=== PATIENT | female | born 1965 | race African-American/Black ===

== ENCOUNTER 2024-03-09 16:03 | Outpatient (REF) | payer OTHER, MEDICAID, SELFPAY ==
[2024-03-09 17:58] LABS: Vitamin B12 715 pg/mL (200-900)
--- OUTSIDE RECORDS SUMMARY | 2024-03-09 18:10 | XMS_ITS | Data Portability ---
Author Organization [facility], [place] [facility] [employer] Address [address] [place] [id number] Care Team Providers Care Furnace Filler Name Role Phone HIM CCA OTHER ABIJessiJEANNETTEGabbi Primary Care Provider [phone] Assessment Encounter Date Assessment Date Assessment LastModified by Organization Details LastModified Time 03/31/2023 03/31/2023 I provided real -time medical direction via phone for this encounter, and was available for additional phone-based assistance as needed. I have reviewed and agree with the Assessment and Plan as documented by the Cardiothoracic Physiotherapist. Patient given the opportunity to ask questions. As per above, patient with left ear pain times days that subsequent ally developed into a ST. Eating and drinking normally. Denies F/C. Per assembly cleaner on the scene - non-toxic, NAD, stable vitals and AF. COVID and Strept are both negative. Does have a h/o OM. Differential includes OM vs. OME - unable to visualize TM in the field. Pharyngitis likely viral. Given her history of OM responsive to PCN - will treat with Amoxicillin times 7 days. She can f/u with PCP if symptoms do not resolve. Can use OTCs for pain control - Tylenol vs Advil. We discussed the diagnostic uncertainty of home visits and the risk associated with this. In this case, the patient and I felt this to be an acceptable and reasonable amount of risk given the benefit of avoiding an ED visit. We discussed the need to seek care urgently/emergentl y in the setting of any new or worsening serious symptoms, particularly fever chills lightheadedness altered mental status [email or web address] Not available 03/31/2023 12:42:52 01/02/2024 01/02/2024 As noted, we salas e called to see this patient regarding concerns of vaginal itchEvaluation in the field was performed by my assembly cleaner colleague, as noted above, I provided real-time direction and supervision for this visit. 58 F reports symptoms that feel like a yeast infection. describes vaginal and groin itch though no discharge. Pt refused a visual exam. will prescribe diflucan x1 but she needs to see her pcp for a proper exam to assess for intertrigo or vaginitis that might require different treatmetn [email or web address] Not available 01/02/2024 22:12:34 Plan of Treatment Reminders Order Date Submit Date Provider Last Modified By Organization Details Last Modified Time Details Appointments None recorded. Lab rapid SARS CoV 2 Ag, QL IA, respiratory specimen [address], [address] [place] [address], [phone], 4 12:43:36 rapid strep group A, throat [address], [address] [place] [address], [phone], 4 12:43:34 Referral None recorded. Procedures None recorded. Surgeries None recorded. Imaging None recorded. Medication Orders amoxicillin 875 mg tablet 2023 024 [facility] #[id number], [phone] [place], [address], 4 12:43:36 fluconazole 200 mg tablet 2023 024 [facility] #[id number], [phone] [place], [phone], 4 20:54:51 Patient TargetsNo targets recorded. Patient InstructionsNo instructions recorded. Reason for Referral None Reported. Results Created Date Observation Date Name Description Value Unit Range Abnormal Flag Note LastModifiedBy Organization Detail LastModifiedTime 03/31/1903/31/2023 rapid strep group A, throa t Strep negati ve Not Available [address], [phone], 03/31/2023 12:43:16 03/31/19 24 03/31/2023 rapid SARS CoV 2 Ag, QL IA, respi rator y speci men rapid SARS CoV 2 Ag, QL IA, respiratory specimen negati ve Not Available [facility] - [facility] ed [address] [facility], [place], [phone], 03/31/2023 12:43:06 Result Notes None recorded. Medical Equipment None Reported. Allergies No known drug allergies Medications Name Sig Start Date Stop Date Status Note LastModified by Organization Details LastModified Time amoxicillin 500 mg capsule TAKE 1 CAPSULE BY MOUTH EVERY 8 HOURS FOR 7 DAYS active Not Available Not Available No t Available furosemide 40 mg tablet TAKE 1 TABLET BY MOUTH EVERY DAY active Not Available Not Available No t Available acetaminophe n 325 mg tablet TAKE 1-2 TABLET(S) BY MOUTH EVERY 6 HOURS NEEDED FOR PAIN. MAX 4000 MG IN 24 HOURS FOR 30 DAYS active Not Available Not Available Not Available carvedilol 6.25 mg tablet TAKE 1 TABLET BY MOUTH TWICE A DAY active Not Available Not Available No t Available nicotine 14 mg/24 hr daily transdermal patch APPLY 1 PATCH EVERY DAY BY TRANSDERMAL ROUTE DIRECTED FOR 14 DAYS. active Not Available Not Available No t Available ibuprofen 800 mg tablet active Not Available Not Available Not Available nicotine (polacrilex) 2 mg gum CHEW 1 PIECE OF GUM EVERY 2 HOURS BY ORAL ROUTE NEEDED FOR 30 DAYS. active Not Available Not Available No t Available fluconazole 200 mg tablet TAKE 1 TABLET BY MOUTH EVERY DAY active Not Available Not Available No t Available meloxicam 15 mg tablet TAKE 1 TABLET BY MOUTH EVERY DAY DIRECTED active Not Available Not Available No t Available isosorbide mononitrate ER 30 mg tablet,exten ded release 24 hr TAKE 1 TABLET BY MOUTH EVERY DAY active Not Available Not Available No t Available amlodipine 5 mg tablet TAKE 1 TABLET BY MOUTH EVERY DAY DIRECTED active Not Available Not Available No t Available omeprazole 40 mg capsule,dana yed release TAKE 1 CAPSULE BY MOUTH EVERY DAY DIRECTED FOR 90 DAYS active Not Available Not Available Not Available acetaminophe n 500 mg tablet TAKE 2 TABLETS BY MOUTH THREE TIMES DAILY NEEDED FOR PAIN active Not Available Not Available No t Available carvedilol 3.125 mg tablet active Not Available Not Available Not Available amoxicillin 875 mg tablet TAKE 1 TABLET BY MOUTH EVERY 12 HOURS DIRECTED FOR 7 DAYS active Not Available Not Available N ot Available montelukast 10 mg tablet TAKE 1 TABLET BY MOUTH EVERY DAY DIRECTED active Not Available Not Available No t Available furosemide 20 mg tablet TAKE 1 TABLET BY MOUTH EVERY DAY FOR 90 DAYS active Not Available Not Available No t Available hydroxychlor oquine 200 mg tablet TAKE 1 TABLET BY MOUTH EVERY DAY DIRECTED active Not Available Not Available No t Available epinephrine 0.3 mg/0.3 mL injection, auto-injecto r INJECT 1 PEN INTRAMUSCUL PEDRO PABLO NEEDED FOR ANAPHALAXIS DIRECTED active Not Available Not Available Not Available albuterol sulfate HFA 90 mcg/actuatio n aerosol inhaler USE 2 PUFFS BY MOUTH FOUR TIMES DAILY active Not Available Not Available No t Available fluticasone propionate 50 mcg/actuatio n nasal spray,suspen favio active Not Available Not Available Not Available nicotine (polacrilex) 2 mg buccal lozenge DISSOLVE 1 LOSENGE EVERY 8 HOURS NEEDED FOR 30 DAYS active Not Available Not Available No t Available chlorhexidin e gluconate 0.12 % mouthwash USE 15 ML TO RINSE MOUTH FOR 30 SECONDS TWICE DAILY AFTER BRUSHING AND FLOSSING. DO NOT SWALLOW active Not Available Not Available No t Available All Day Allergy (cetirizine) 10 mg tablet active Not Available Not Available Not Available cholecalcife rol (vitamin D3) 50 mcg (2,000 unit) capsule TAKE 1 CAPSULE BY MOUTH EVERY DAY DIRECTED FOR 90 DAYS active Not Available Not Available Not Available Farxiga 10 mg tablet TAKE 1 TABLET BY MOUTH EVERY DAY DIRECTED active Not Available Not Available No t Available Entresto 24 mg-26 mg tablet TAKE 1 TABLET BY MOUTH TWICE A DAY DIRECTED FOR 90 DAYS active Not Available Not Available Not Available Spiriva Respimat 1.25 mcg/actuatio n solution for inhalation INHALE 2 PUFFS BY MOUTH ONCE DAILY DIRECTED active Not Available Not Available No t Available nicotine (polacrilex) 4 mg buccal mini lozenge active Not Available Not Available Not Available BinaxNOW COVID-19 Ag Self Test kit TEST DIRECTED TODAY active Not Available Not Available No t Available Vitals Date Recorded Body temperature Respiratory rate Heart rate Oxygen saturation Oxygen saturation in Arterial blood by Pulse oximetry Systolic blood pressure Diastolic blood pressure Provider Name and Address Organization Details Last Updated DateTime 4 99.2 [degF] 16 /min 88 /min 99 % 99 % 140 mm[Hg] 80 mm[Hg] Not Available [facility] - production 4 12:29:45 Date Recorded Respiratory rate Oxygen saturation Oxygen saturation in Arterial blood by Pulse oximetry Body weight Body temperature Body height Heart rate Systolic blood pressure Diastolic blood pressure Provider Name and Address Organization Details Last Updated DateTime 4 18 /min 99 % 99 % 90930.7 44 g 98 [degF] 175.26 cm 90 /min 159 mm[Hg] 80 mm[Hg] Not Available [facility] - production 4 20:52:14 Social History None recorded. Functional Status None recorded. Mental Status None recorded. Family History Nothing Reported. Medical History No medical history recorded. Gynecological HistoryNo gynecological history recorded. Obstetrics History GPAL:G 0 P 0 0 0 0 Past Encounters Encounter ID Performer Location Encounter Start Date Encounter Closed Date Diagnosis/Indication Diagnosis SNOMED-CT Code Diagnosis ICD10 Code Diagnosis Note [id number] Estefany Fierro MD [facility] - [facility] [address] [place] [id number] 03/31/2023 12:29:42 03/31/2023 21:48:03 Acute otitis media 2900431 H66.92 [id number] Emiliano Butterfield MD Main - [facility] [address] [place] [phone] 01/02/2024 20:52:11 01/03/2024 14:02:39 Pruritus of vagina 91854917 L29.3 Health Concerns Section Related Observation LastModified by Organization Detai ls LastModified Time None Recorded Concern Status LastModified by Organization Details LastModified Time None Recorded Advance Directives Directive None Recorded Payers Encounter Date Sequence Insurance Name Policy Number Policy Michel Covered Member ID Michel Member ID Guarantor Name 03/31/2023 1 [facility] - DOS ON OR AFTER 2022 - DUAL ELIGIBLE - HALFWAY OPTIONS AND ONE CARE (MEDICARE REPLACEMENT/ADV ANTAGE - HMO) [place] Click [id number] [employer] R [employer] 01/02/2024 1 [facility] - DOS ON OR AFTER 2022 - DUAL ELIGIBLE - HALFWAY OPTIONS AND ONE CARE (MEDICARE REPLACEMENT/ADV ANTAGE - HMO) [place] [id number] [employer] R [employer] Notes Date Note Type Note Provider Name and Address Organization Details Recorded Time 03/31/2023 text/html [facility] Nurse Triage Notes (Hany Lynne): Reason For Request: Pt reporting trouble swallowing, ears, throat, gargling salt water + tylenol for 2 days and no alleviation. Chief Complaints: Pain Allergies: No Known Comments: Cargo Trimmer verified the member's name//address and phone number - Education provided on the response time and the member was advised to monitor reported s/s and seek emergency treatment if needed. Member reports feeling unwell with a sore throat/congestion and ear pain for 2 days - Member is taking Tylenol - Denies fever - Denies N/V - Denies Body aches - Member is requesting a wellness check. ...................... ...................... ...................... ...................... ...................... ...................... ......... Cardiothoracic Physiotherapist Note From Angel Allen: Dispatched to the call address for the female with a sore throat and ear pain. Pt states she is on day 3 or 4 of a sore throat with left ear pain/pressure. Pt states she has had this before and was treated successfully with abx. Pt states she has tried OTC pain relievers with little effect. She describes the throat pain is difficulty swallowing and razor blades. Pt was found opening door, CAOx4, airway open and patent, breathing non labored, able to speak in full sentences, -JVD, pupils PERRL, +CMSx4, skin color appropriate for race/warm/dry. Rapid Covid and Strept test (-). [facility] [place]. Script called into preferred pharmacy. Red flags discussed. ALL times are approx. ...................... ...................... ...................... ...................... ...................... ...................... ......... Disposition: Oseas Estefany Fierro MD [address] [facility],[address], [place], [phone], [facility] 03/31/2023 12:44:20 01/02/2024 text/html [facility] Nurse Triage Notes (Hany Lynne): Reason For Request: yeast infection Chief Complaints: Wound care PMH: Gastroesophageal Reflux Disease (GERD), Congestive Heart Failure, Hypertension Comments: Cargo Trimmer verified the Pt.'s name//address and phone number. Education provided on the response time and the Pt. was advised to monitor reported s/s and seek emergency treatment if needed. Pt reports having a yeast infection - Increased discharge with an odor - Hx of same - Denies fever - S/S started yesterday ...................... ...................... ...................... ...................... ...................... ...................... ......... Cardiothoracic Physiotherapist Note From Torrie Lewis: Sent to a call for a pt complaining of a yeast infection. SC8 arrives on scene, pt is alert and oriented, airway is patent. Pt states she has had multiple yeast infections in the past. Pt denies medication allergies. Pt complains of itching/burning on vulva, discharge, and foul odor x 2 days. Pt denies perkins, dizziness, cp, sob, n/v/d, abd pain, dysuria, hematuria, fever, or loc. BP:159/80, P:90, RR:18, SpO2:99% RA, T:98.0; Head: unremarkable; Lung sounds: clear bilaterally; Abdomen: soft, non-tender, no distention; Back: unremarkable; Extremities: unremarkable; Skin: pink, warm, dry; Pt declines visual exam to assess affected area. [facility] consulted and pt again declines visual exam. [facility] [place] script to pt's pharmacy for Fluconazole. Pt is advised to follow up with PCP. Red flags discussed. Pt has no further questions. ...................... ...................... ...................... ...................... ...................... ...................... ......... [facility] Consulted: Emiliano Butterfield ...................... ...................... ...................... ...................... ...................... ...................... ......... Disposition: Oseas Butterfield MD [address] [facility],[address], [place], [phone], [facility] 01/02/2024 22:12:48 OBGyn Episode No OBEpisode recorded.
--- OUTSIDE RECORDS SUMMARY | 2024-03-09 18:10 | XMS_ITS | Continuity of Care Document ---
Author Name [facility] Organization [facility] Care Team Providers Care Poultry Grader Name Role Phone [facility] Unavailable Unavailable Problems Combined list of problems from Department of Defense and Veterans Affairs facilities. It does not include entries that were removed or entered in error. Problem Status Onset Date Problem Type Date of Resolution Comments Source Sleep Apnea (SCT [id number]) Active 2013 Condition Jan 21, 2023 Entered By: TABITHA DORMAN Comment: Mild - not on CPAP [facility] Alcoholic cirrhosis Active Condition [facility] Asthma (SCT 460322373) Active Condition [facility] Colonoscopy Screening Active Condition Oct 15, 2019 En tered By: TABITHA DORMAN Comment: 10/07/19 - consult w/Dr Pacheco - procedure to be scheduled [facility] Congestive heart failure Active Condition Mar 03, 2023 En tered By: TABITHA DORMAN Comment: Dxed 01/12/23 [place] Constipation Active Condition [facility] Dermatophytosis Active Condition [facility] GERD - Gastro-Esophageal Reflux Disease (SCT [id number]) Active Condition [facility] 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 Oct 14, 2017 Entered By: TABITHA DORMAN Comment: IUD placed 2016 [facility] Hidradenitis Active Condition [facility] HTN - Hypertension (SCT 31611705) Active Condition [facility] Hypercholesterolemi a (SCT 02819250) Active Condition [facility] Mammogram Screening Active Condition Oct 14, 2017 Entered By: TABITHA DORMAN Comment: 03/15/2015 - normal - [facility] 2019 Entered By: TABITHA DORMAN Comment: 05/02/19 - several loosely scattered small groups of coarse microcalcifications bilaterally, prob benign, recommend 6 mth f/u diagnostic mammo bilateral to confirm stabilitySep 2019 Entered By: TABITHA DORMAN Comment: 11/04/19 - [facility] - stable B/L, prob benign microcalcifications, recommend 6 mth f/u diagnostic mammography w/magnification views to establish at least 1 yr stability [facility] Peripheral neuropathic pain Active Condition [facility] Relationship problems Active Condition [facility] Tobacco User (SCT [id number]) Active Condition [facility] Diagnosis: ICD-10-CM I50.9 Heart failure, unspecified Active Diagnosis [place] Diagnosis: ICD-10-CM R05.9 Cough, unspecified Active Diagnosis [facility] Medications Combined list of outpatient medications from Department of Defense and Veterans Affairs facilities.Medications provided include 1) outpatient medications from the last 15 months, and 2) patient-reported medications. Medication Details Route Status Patient Instructions Prescription Expires Prescription Number Last Dispense Date Ordering Provider Order Date Order Qty Source CARVEDILOL 6.25MG TAB TAKE ONE TABLET BY MOUTH TWICE DAILY ORAL ACTIVE MONSE DORMAN SA 2023 [place] CETIRIZINE (U/D) 10 MG ORAL TAB TAKE ONE TABLET BY MOUTH ONCE DAILY FOR ALLERGIE S 01/23/2023 [id number] CHARLES DEY 2022 30 [facility] CETIRIZINE HCL 10MG TAB TAKE ONE TABLET BY MOUTH ONCE DAILY FOR ALLERGIE S ORAL 01/23/2023 [id number] RADHA DEY 2022 30 [facility] EPINEPHRINE (EQV-EPI-PE N) 0.3MG/0.3ML INJECTOR INJECT DIRECTED INTRAMUS CULARLY NEEDED INTRAM USCULA R ACTIVE MONSE DORMAN SA 2017 IELD FERROUS GLUCONATE TAB TAKE 240MG BY MOUTH TWICE DAILY ORAL ACTIVE MONSE DORMAN SA 08/28/ 2018 [place] FLONASE-OTC (BRAND) 50 MCG ANTOINETTE SPSN [9.9] INSTILL 2 SPRAYS INTO EACH NOSTRIL ONCE DAILY 01/23/2023 [id number] 3 YISSEL, CHARLES 2022 1 [facility] FLONASE-OTC (BRAND) 50 MCG ANTOINETTE SPSN [9.9] INSTILL 2 SPRAYS INTO EACH NOSTRIL ONCE DAILY 01/23/2023 [id number] 3 YISSEL, CHARLES 2022 1 [facility] FLUTICASONE PROPIONATE 50MCG/SPRAY SOLN,NASAL, 16GM INSTILL 2 SPRAYS INTO EACH NOSTRIL ONCE DAILY NASAL 01/23/2023 [id number] 3 YISSEL,NA DEBI M 2022 1 [facility] FUROSEMIDE 40MG TAB TAKE ONE TABLET BY MOUTH ONCE DAILY ORAL ACTIVE MONSE DORMAN SA spring IELD HYDROXYCHLO ROQUINE SO4 200MG TAB TAKE ONE TABLET BY MOUTH ORAL ACTIVE MONSE DORMAN SA spring IELD MONTELUKAST NA 10MG TAB TAKE ONE TABLET BY MOUTH ONCE DAILY ORAL ACTIVE MONSE DORMAN SA spring IELD Nicotine Polacrilex (Commit Eq.) Lozenge 4 mg Mouth/Throa t DISSOLVE 1 LOZENGE BY MOUTH EVERY TWO HOURS NEEDED FOR NICOTINE REPLACEM ENT 03/03/2024 [id number] TABITHA DORMAN 2023 162 [facility] NICOTINE POLACRILEX 4MG MINI LOZENGE DISSOLVE 1 LOZENGE BY MOUTH EVERY TWO HOURS NEEDED FOR NICOTINE REPLACEM ENT ORAL 03/03/2024 [id number] MONSE DORMAN SA 2023 162 [place] OMEPRAZOLE 20MG CAP,EC TAKE 2 CAPSULES BY MOUTH ONCE DAILY ORAL ACTIVE MONSE DORMAN SA spring IELD SACUBITRIL 24MG/VALSAR EPSTEIN 26MG TAB TAKE ONE TABLET BY MOUTH TWICE DAILY ORAL ACTIVE MONSE DORMAN SA 2023 [facility] IELD SENNOSIDES 8.6MG TAB TAKE ONE TABLET BY MOUTH TWICE DAILY ORAL ACTIVE MONSE DORMAN SA 2017 [facility] IELD Allergies, Adverse Reactions, Alerts Combined list of allergies from Department of Defense and Veterans Affairs facilities. It does not include entries that were removed or entered in error. Substance Category Reaction Severity Reaction type Status Date Reported Comments Source CAT DANDER Propensity to adverse reaction (finding) active 8 [facility] [place] Propensity to adverse reaction (finding) active 8 [facility] Immunizations Combined list of available immunizations from the Department of Defense and Veterans Affairs facilities. Immunization Series Date Given Administered By Site Reaction Lot Number CVX Code Drug Stem Mounter Status Comments Source COVID-19 (MODERNA), MRNA, LNP-S, PF, 50 MCG/0.5 ML (AGES 12+ YEARS) 2023 PRIMITIVO POWERS ON M LEFT DELTO ID [id number] 312 complet ed [place] INFLUENZA, INJECTABLE, QUADRIVALENT, PRESERVATIVE FREE 2023 PRIMITIVO POWERS ON M RIGHT DELTO ID [id number] A 150 complet ed [place] INFLUENZA, INJECTABLE, QUADRIVALENT, PRESERVATIVE FREE 2021 150 complet ed [place] PNEUMOCOCCAL CONJUGATE PCV20, POLYSACCHARID E [id number] CONJUGATE, ADJUVANT, PF 2021 216 complet ed [place] INFLUENZA, INJECTABLE, QUADRIVALENT, PRESERVATIVE FREE 2018 150 complet ed Partner: [facility]. Administe red by: [facility] Clinician (NPI=Not Provided) . Partner 4 Mfr: [facility] FLU,3 YRS (HISTORICAL) 2016 88 complet ed Hayden Stoper s [facility] INFLUENZA, SEASONAL, INJECTABLE 2016 141 complet ed outside pcp [place] [facility] [place] [facility] PNEUMOCOCCAL POLYSACCHARID E [id number] 2011 33 complet ed [facility] TDAP [address] [place] [address] Stoper s [facility] Encounters Combined list of: 1) Encounters from Department of Veterans Affairs facilities going back up to thelast 18 months. 2) Encounters from the Department of Defense facilities going back up to 280 months. Location Location Details Encounter Type Encounter Number Reason For Visit Attending Provider ADM Date DC Date Status Disposition Source [facility] Outpatient Encounter [id number] 09/15 [facility]counter [id number] 09/23 [facility] Out[facility]counter [id number] 09/23 [facility] Out[facility] Encounter [id number] YOSELIN WARNER 12/23 [facility] Out[facility] Encounter [id number] Diagnos is: ICD-10- CM R05.9 Cough, unspeci fied
CHINO DEY 12/24 [facility] En[facility] [id number] 01/11 [facility] Out[facility]counter [id number] 01/19 [facility]counter [id number] 01/21 [facility] [place] Outpatient Encounter [id number] 01/21 [facility] [place] [facility] Outpatient Encounter [id number] 02/25 [place] [facility] [place] Outpatient Encounter [id number] 03/03 [place] [facility] [place] [facility] OFFICE O/P EST MOD 30 MIN [id number] Diagnos is: ICD-10- CM I50.9 Heart failure , unspeci fied
LIA DORMAN 03/03 [facility] [place] [facility] [facility] Outpatient Encounter [id number] 11/26 [facility] [place] [place] [facility] Social History Combined list of available smoking, tobacco, and other social history from Department of Defense and Veterans Affairs facilities. 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 History of tobacco use CURRENT SMOKER 09/16/2017 20 cigarettes per day [place] This section is an empty social history section. DoD Plan of Care List of future care activities from Department of Veterans Affairs facilities. Additional future care activities may be listed in the Assessment and Plan section. 

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
--- OUTSIDE RECORDS SUMMARY | 2024-03-09 18:11 | XMS_ITS | Data Portability ---
Author Organization [place] [facility] Maureen Steve [place] Address [address] [facility] [address] [place] [address] Assessment Encounter Date Assessment Date Assessment LastModified by Organization Details LastModified Time 08/04/2022 08/04/2022 57-year-old female presenting with bilateral knee pain. She was entirely uncooperative with history and refused any exam. Please see the HPI for further description of her encounter. Ms. calvillo self discharged from this orthopedic practice today. Not available 08/04/2022 12:36:25 Plan of Treatment Reminders Order Date Submit Date Provider Last Modified By Organization Details Last Modified Time Details Appointments None recorded. Lab None recorded. Referral None recorded. Procedures None recorded. Surgeries None recorded. Imaging XR, knee, 1 or 2 view - Left Knee Pain 2022 023 [email or web address], [address], [place], [address], 3 12:38:19 XR, knee, 1 or 2 view - Right Knee Pain 2022 023 [email or web address], [address], [place], [address], 3 12:38:19 XR, knee, weightbeari ng - Bilateral Knee Pain 2022 023 [facility], [address], [place], [address], 3 12:38:19 Medication Orders None recorded. Patient TargetsNo targets recorded. Patient Instructions Encounter Date Encounter Id Patient Instructions Last Modified By Organization Details Last Modified Time 08/04/2022 [id number] Three-view x-ray study shows a mild degree of degenerative changes of bilateral knees. They show mild medial joint space narrowing and a subtle amount of subchondral sclerosis. There is no acute osseous abnormality nor any suggestion of a neoplastic process. Not available 08/04/2022 12:37:10 Reason for Referral None Reported. Medical Equipment None Reported. Medications Name Sig Start Date Stop Date Status Note LastModified by Organization Details LastModified Time ibuprofen 800 mg tablet TAKE 1 TABLET BY MOUTH EVERY 8 HOURS NEEDED FOR PAIN active Not Available Not Available No t Available meloxicam 15 mg tablet TAKE 1 TABLET BY MOUTH EVERY DAY DIRECTED active Not Available Not Available No t Available amlodipine 5 mg tablet TAKE 1 TABLET BY MOUTH EVERY DAY DIRECTED active Not Available Not Available No t Available triamcinolone acetonide 0.1 % topical ointment APPLY THIN LAYER TOPICALLY TO THE AFFECTED AREA TWICE DAILY active Not Available Not Available No t Available hydroxychloro quine 200 mg tablet TAKE 1 TABLET BY MOUTH EVERY DAY DIRECTED active Not Available Not Available No t Available epinephrine 0.3 mg/0.3 mL injection, auto-injector active Not Available Not Availabl e Not Available oxycodone 5 mg tablet active Not Available Not Available No t Available lidocaine 5 % topical ointment active Not Available Not Available Not Available Myrbetriq 25 mg tablet,extend ed release TAKE 1 TABLET BY MOUTH EVERY DAY DIRECTED active Not Available Not Available No t Available Vitals Date Recorded Body height Body mass index (BMI) Body weight Provider Name and Address Organization Details Last Updated DateTime 08/04/2022 175.26 cm 26.6 kg/m2 33871.63 g Tahir Leon [place] [facility] 08/04/2022 11:49:06 Social History Question Answer Notes LastModified by Organizat ion Details LastModified Time Tobacco Smoking Status Current Every Day Smoker Tahir Leon [facility], [place] - [facility] 08/04/2022 11:49:29 What Is Your Level Of Alcohol Consumption? Moderate [email or web address] Information not available 08/04/2022 How Much Tobacco Do You Smoke? 1 PPD [email or web address] Information not available 08/04/2022 Do You Use Any Illicit Or Recreational Drugs? No [email or web address] Information not available 08/04/2022 Do You Or Have You Ever Used Any Other Forms Of Tobacco Or Nicotine? No [email or web address] Information not available 08/04/2022 Sex: Unknown Functional Status None recorded. Mental Status None recorded. Family History Nothing Reported. Medical History Condition Response Anemia Y Reflux/GERD Y Rheumatoid Arthritis Y Hypertension Y Asthma Y Gynecological HistoryNo gynecological history recorded. Obstetrics History GPAL:G 0 P 0 0 0 0 Past Encounters Encounter ID Performer Location Encounter Start Date Encounter Closed Date Diagnosis/Indication Diagnosis SNOMED-CT Code Diagnosis ICD10 Code Diagnosis Note [id number] Nadeem Rocha MD [facility] [address] [facility] [address] [place] [address] 08/04/2022 11:09:58 08/04/2022 12:09:25 Pain of bilateral knee joints [id number] 82788 M25.561 M25.562 Health Concerns Section Related Observation LastModified by Organization Detai ls LastModified Time None Recorded Concern Status LastModified by Organization Details LastModified Time None Recorded Advance Directives Directive None Recorded Payers Encounter Date Sequence Insurance Name Policy Number Policy Michel Covered Member ID Michel Member ID Guarantor Name 08/04/2022 2 () [employer] [id number] [employer] 08/04/2022 1 [facility] - DOS ON OR AFTER 2022 - CUSTODIAL OPTIONS AND ONE CARE (MEDICARE REPLACEMENT/ADV ANTAGE - PPO) Juana Lambert Click [id number] [employer] Notes Date Note Type Note Provider Name and Address Organization Details Recorded Time 08/04/2022 text/html 57-year-old femjanes chavez presents with complaint of bilateral knee pain. She reports having used leg braces. She states having done physical therapy before COVID. She reports using meloxicam and gabapentin. Before Ms. calvillo was willing to answer any further questions regarding her presenting complaint she became agitated. I made every effort to listen to Ms. lucio concern and to direct our conversation towards her presenting complaint. She became increasingly irate and threatening. I brought a electronic design engineer into the room for the remainder of our discussion. I offered her to be rescheduled with another orthopedic provider but she refused. Ms. calvillo refused to answer any further questions and refused a physical exam. She self discharged from the office today. She made a loud and aggressive display including obscenities in the waiting room and in the hallway on her departure from the office. SHIRA LANDA PA-C [address] [place] [address], [place], [address], [place] [facility] 08/04/2022 12:38:09 OBGyn Episode No OBEpisode recorded.
--- OUTSIDE RECORDS SUMMARY | 2024-03-09 18:11 | XMS_ITS ---
Author Name [facility] Organization Unknown History of Medication Use Medication Directions Dispensed Refills Start Date End Date [facility] triamcinolone acetonide 0.1 % topical ointment APPLY THIN LAYER TOPICALLY TO THE AFFECTED AREA TWICE DAILY active epinephrine 0.3 mg/0.3 mL injection, auto-injector active Myrbetriq 25 mg tablet,extended release TAKE 1 TABLET BY MOUTH EVERY DAY DIRECTED active hydroxychloroquine 200 mg tablet TAKE 1 TABLET BY MOUTH EVERY DAY DIRECTED active lidocaine 5 % topical ointment active
--- OUTSIDE RECORDS SUMMARY | 2024-03-09 18:11 | XMS_ITS | Data Portability ---
Author Organization [facility], Main Office Address [address] [place] [address] Care Team Providers Care Sewing Trimmer Name Role Phone ANUP CANTOR Neurologist CLINTON HERNANDEZ Orthopedic Surgeon SHWETA LOPEZ Half Sole Fitter [phone] TABITHA DORMAN Sole Rounding Machine Operator CONSTANTIN REILLY Primary Care Provider [facility] Grease And Tallow Pumper Assessment Encounter Date Assessment Date Assessment LastModified by Organization Details LastModified Time 01/22/2023 01/22/2023 Discussed with patient the signs/symptoms warranted for a return to office visit and/or an ER visit. Patient understood and agreed with the plan. Not available 01/22/2023 21:33:50 12/16/2023 12/16/2023 Discussed with patient the signs/symptoms warranted for a return to office visit and/or an ER visit. Patient understood and agreed with the plan. Not available 12/16/2023 11:21:47 01/02/2024 01/02/2024 This service was provided using telemedicine. Patient consented to telephone visit Patient was located in the [facility]. Provider was located in the office. No other persons participated in the telemedicine visit except for the patient unless otherwise indicated here. 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 [email or web address] Not available 01/02/2024 20:28:25 Plan of Treatment Reminders Order Date Submit Date Provider Last Modified By Organization Details Last Modified Time Details Appointments [id number] 2024 11:00A Princess Reilly PA-C Not available Not available Not available Lab HbA1c (hemog lobin A1c), blood 2023 024 [facility], [address], [facility], [place], [address], 02/27/2023 19:49:05 CMP, serum or plasma 2023 024 [facility], [address], [facility], [place], [address], 02/27/2023 18:04:11 CBC w/ auto diff 2023 024 [facility], [address] [place] [address], [facility], [place], [address], 02/27/2023 16:09:20 H pylori urea breath test, co2 infrar ed 2023 024 [facility], [address] [place] [address], [address], 08/28/2023 10:44:46 CBC w/ auto diff 2023 024 [facility], [address] [place] [address], [address], 08/29/2023 16:06:24 BNP (B-typ e natriu retic peptid e), serum or plasma 2023 024 [facility], [address] [place] [address], [address], 08/29/2023 16:06:25 BMP, serum or plasma 2023 024 [facility], [address] [place] [address], [address], 08/29/2023 16:06:23 Referral sleep medici ne referr al - sleep apnea 2022 023 [facility], [address] [place] [address] [address], [place], [address], 09/07/2023 11:45:41 gastro entero logist referr al - hilario a colono scopy and endosc opy 2022 024 [email or web address] [facility], [address] [facility], [facility], [place], [address], 03/10/2023 11:23:22 gastro entero logist referr michael Pascual ished with Kevstjanes nader Needs colon cancer screen ing 2023 024 [email or web address] [facility], [address] [facility], [facility], [place], [address], 12/01/2023 10:16:57 Procedures None record ed. Surgeries None record ed. Imaging home sleep study 2022 023 [email or web address], [address] [facility], [place], [address], 02/11/2023 07:58:07 MAMMO, screen ing, bilate ral - Perfor m Diagno stic Mammog eilseo and Breast Ultras ound if needed / Perfor m Ultras ound Guided Aspira tion and/or Breast Biopsy if warran vanesa, due for screen ing 2023 024 ATHENAFAX [facility], [address], [place], [address], 02/27/2023 14:14:37 Medication Orders acetam inophe n 500 mg tablet 2023 024 YINA [facility], [phone] [place], [address], 02/27/2023 12:03:22 Vitami n D3 50 mcg (2,000 unit) capsul e 2023 024 [email or web address] [facility], [phone] [place], [address], 02/27/2023 12:46:53 omepra zole 40 mg capsul e,dana yed releas e [address] [facility] [phone] [place], [address], 08/28/2023 10:44:42 Ventol in HFA 90 mcg/ac tuatio n aeroso l inhale r [address] [facility] [phone] [place], [address], 08/28/2023 10:38:35 isosor bide mononi trate ER 30 mg tablet ,exten ded releas e [address] [facility], [phone] [place] [address], [address], 08/28/2023 10:38:38 meloxi cam 15 mg tablet [address] [facility] [phone] [place] [address], [address], 08/28/2023 10:38:37 lacey ukast 10 mg tablet [address] [facility] [phone] [place], [address], 08/28/2023 10:38:37 hydrox ychlor oquine 200 [address] [facility] [phone] [place], [address], 08/28/2023 10:38:37 Entres to 24 mg-26 mg tablet 2023 024 [email or web address] [facility], [phone] [place], [address], 08/28/2023 12:20:07 carved ilol 6.25 mg tablet 2023 024 [facility], [phone] [place], [address], 08/28/2023 10:38:36 Farxig a 10 mg tablet [address] [facility] [phone] [place], [address], 08/28/2023 10:38:36 flucon azole 150 mg tablet [address] [facility] [phone] [place], [address], 01/02/2024 20:23:49 Patient TargetsNo targets recorded. Patient Instructions Encounter Date Encounter Id Patient Instructions Last Modified By Organization Details Last Modified Time 01/22/2023 [id number] Chart reviewed, agree with above assessment and plan. [email or web address] Not available 01/25/2023 22:49:39 [facility] follow up visit, all current and discharge medications (OTC, herbal therapies, supplements) reviewed and reconciled with patient and or caregiver, including potential side effects, drug interactions, instructions, and the consequences of not taking medication. Reviewed potential barriers to medication adherence, such as side effects from medication or cost of medication. [email or web address] Not available 01/22/2023 14:08:37 02/27/2023 [id number] preventing falls : care instructions [email or web address] Not available 02/27/2023 11:44:27 medicare prevent flaco services guide (male 74 rs and under) [email or web address] Not available 02/27/2023 11:44:27 medicare prevent flaco services guide (female 74yrs and under) [email or web address] Not available 02/27/2023 11:44:27 learning about colon cancer [email or web address] Not available 02/27/2023 11:52:11 To call or retur n for worsening or concerns [email or web address] Not available 02/27/2023 11:57:11 08/28/2023 [id number] gastroesophageal reflux disease (GERD): care instructions [email or web address] Not available 08/28/2023 10:44:40 To call or retur n for worsening or concerns [email or web address] Not available 08/28/2023 10:38:36 Reason for Referral Grease And Tallow Pumper Referral for Gastroesophageal reflux disease needs a colonoscopy and endoscopy Referring Physician: Chichi Jeronimo [facility], Encounter Date: 01/22/2023 Sleep Medicine Referral for Sleep apnea sleep apnea Referring Physician: Chichi Jeronimo [facility], Encounter Date: 01/22/2023 Grease And Tallow Pumper Referral for Screening for malignant neoplasm of colon Established with [facility] colon cancer screening Referring Physician: Constantin Reilly [facility], Encounter Date: 02/27/2023 Results Created Date Observation Date Name Description Value Unit Range Abnormal Flag Note LastModifiedBy Organization Detail LastModifiedTime 02/27/19 24 02/27/2023 COMPL ETE CBC WITH DIFF WBC 5.3 K/mm3 (4.0-1 1.0) Not Available [facility] [place], [address], 02/27/2023 16:09:20 02/27/19 24 02/27/2023 COMPL ETE CBC WITH DIFF RBC 4.98 M/mm3 (4.20- 5.40) Not Available [facility] [address] [place], [address], 02/27/2023 16:09:20 02/27/19 24 02/27/2023 COMPL ETE CBC WITH DIFF HGB 13.2 gm/dL (11.7- 15.5) Not Available [facility] [address] [place], [address], 02/27/2023 16:09:20 02/27/19 24 02/27/2023 COMPL ETE CBC WITH DIFF HCT 43.6 % (35.7- 45.8) Not Available [facility] [address] [place], [address], 02/27/2023 16:09:20 02/27/19 24 02/27/2023 COMPL ETE CBC WITH DIFF MCV 87.6 fL (80.0- 100.0) Not Available [facility] [address] [place], [address], 02/27/2023 16:09:20 02/27/19 24 02/27/2023 COMPL ETE CBC WITH DIFF MCH 26.5 pg (27.0- 34.0) low Not Available [facility] [address] [place], [address], 02/27/2023 16:09:20 02/27/19 24 02/27/2023 COMPL ETE CBC WITH DIFF MCHC 30.3 g/dL (33.0- 37.0) low Not Available [facility] [address] [place], [address], 02/27/2023 16:09:20 02/27/19 24 02/27/2023 COMPL ETE CBC WITH DIFF plt 254 K/mm3 (150-4 60) Not Available [facility] [address] [place], [address], 02/27/2023 16:09:20 02/27/19 24 02/27/2023 COMPL ETE CBC WITH DIFF RDW-SD 50.0 fL (<47.0 ) high Not Available [facility] [address] [place], [address], 02/27/2023 16:09:20 02/27/19 24 02/27/2023 COMPL ETE CBC WITH DIFF MPV 10.9 fL (9.4-1 2.4) Not Available [facility] [address] [place], [address], 02/27/2023 16:09:20 02/27/19 24 02/27/2023 COMPL ETE CBC WITH DIFF automated NRBC 0.0 #/100 _WBC' s Not Available [facility] [address] [place], [address], 02/27/2023 16:09:20 02/27/19 24 02/27/2023 COMPL ETE CBC WITH DIFF abs. NRBC 0.0 K/mm3 Not Available [facility] [address] [place], [address], 02/27/2023 16:09:20 02/27/19 24 02/27/2023 COMPL ETE CBC WITH DIFF neut # 2.0 K/mm3 (1.3-7 .0) Not Available [facility] [address] [place], [address], 02/27/2023 16:09:20 02/27/19 24 02/27/2023 COMPL ETE CBC WITH DIFF lymph # 2.4 K/mm3 (0.8-3 .1) Not Available [facility] [address] [place], [address], 02/27/2023 16:09:20 02/27/19 24 02/27/2023 COMPL ETE CBC WITH DIFF mono# 0.4 K/mm3 (0.4-0 .9) Not Available [facility] [address] [place], [address], 02/27/2023 16:09:20 02/27/19 24 02/27/2023 COMPL ETE CBC WITH DIFF eo # 0.5 K/mm3 (0.0-0 .4) high Not Available [facility] [address] [place], [address], 02/27/2023 16:09:20 02/27/19 24 02/27/2023 COMPL ETE CBC WITH DIFF baso # 0.1 K/mm3 (0.0-0 .1) Not Available [facility] [address] [place], [address], 02/27/2023 16:09:20 02/27/19 24 02/27/2023 COMPL ETE CBC WITH DIFF abs. imm gran 0.0 K/mm3 Not Available [facility] [address] [place], [address], 02/27/2023 16:09:20 02/27/19 24 02/27/2023 COMPL ETE CBC WITH DIFF neut 37.2 % (44-76 ) low Not Available [facility] [address] [place], [address], 02/27/2023 16:09:20 02/27/19 24 02/27/2023 COMPL ETE CBC WITH DIFF lymph 44.6 % (15-43 ) high Not Available [facility] [address] [place], [address], 02/27/2023 16:09:20 02/27/19 24 02/27/2023 COMPL ETE CBC WITH DIFF monocyte 7.7 % (4.5-1 0.5) Not Available [facility] [address], [address], 02/27/2023 16:09:20 02/27/19 24 02/27/2023 COMPL ETE CBC WITH DIFF eo 9.6 % (0-6) high Not Available [facility] [address] [place], [address], 02/27/2023 16:09:20 02/27/19 24 02/27/2023 COMPL ETE CBC WITH DIFF baso 0.9 % (0-2) Not Available [facility] [address] [place], [address], 02/27/2023 16:09:20 02/27/19 24 02/27/2023 COMPL ETE CBC WITH DIFF imm gran 0.0 % Not Available [facility] [address] [place], [address], 02/27/2023 16:09:20 02/27/19 24 02/27/2023 COMPR EHENS FLACO METAB OLIC PANL glucose 88 mg/dL (70-99 ) Not Available [facility] [address] [place], [address], 02/27/2023 18:04:11 02/27/19 24 02/27/2023 COMPR EHENS FLACO METAB OLIC PANL BUN 15 mg/dL (6-20) Not Available [facility] [address] [place], [address], 02/27/2023 18:04:11 02/27/19 24 02/27/2023 COMPR EHENS FLACO METAB OLIC PANL creatinine 1.3 mg/dL (0.5-1 .0) high Not Available [facility] [address] [place], [address], 02/27/2023 18:04:11 02/27/19 24 02/27/2023 COMPR EHENS FLACO METAB OLIC PANL sodium 141 mmol/ L (133-1 45) Not Available [facility] [address] [place], [address], 02/27/2023 18:04:11 02/27/19 24 02/27/2023 COMPR EHENS FLACO METAB OLIC PANL potassium 4.4 mmol/ L (3.6-5 .2) Not Available [facility] [address] [place], [address], 02/27/2023 18:04:11 02/27/19 24 02/27/2023 COMPR EHENS FLACO METAB OLIC PANL chloride 105 mmol/ L (98-10 7) Not Available [facility] [address] [place], [address], 02/27/2023 18:04:11 02/27/19 24 02/27/2023 COMPR EHENS FLACO METAB OLIC PANL bicarbonate 26 mmol/ L (22-29 ) Not Available [facility] [address] [place], [address], 02/27/2023 18:04:11 02/27/19 24 02/27/2023 COMPR EHENS FLACO METAB OLIC PANL anion gap 10 (4-17) Not Available [facility] [address] [place], [address], 02/27/2023 18:04:11 02/27/19 24 02/27/2023 COMPR EHENS FLACO METAB OLIC PANL albumin 4.1 gm/dL (3.4-4 .8) Not Available [facility] [address] [place], [address], 02/27/2023 18:04:11 02/27/19 24 02/27/2023 COMPR EHENS FLACO METAB OLIC PANL calcium 10.4 mg/dL (8.6-1 0.5) Not Available [facility] [address] [place], [address], 02/27/2023 18:04:11 02/27/19 24 02/27/2023 COMPR EHENS FLACO METAB OLIC PANL bilirubin,to bridgette 0.9 mg/dL (0-1.2 ) Not Available [facility] [address] [place], [address], 02/27/2023 18:04:11 02/27/19 24 02/27/2023 COMPR EHENS FLACO METAB OLIC PANL total protein 7.2 gm/dL (6.2-8 .2) Not Available [facility] [address] [place], [address], 02/27/2023 18:04:11 02/27/19 24 02/27/2023 COMPR EHENS FLACO METAB OLIC PANL Ag ratio 1.3 Not Available [facility] [address] [place], [address], 02/27/2023 18:04:11 02/27/19 24 02/27/2023 COMPR EHENS FLACO METAB OLIC PANL AST 23 U/L (0-32) Not Available [facility] [address] [place], [address], 02/27/2023 18:04:11 02/27/19 24 02/27/2023 COMPR EHENS FLACO METAB OLIC PANL alk phos 125 U/L (35-10 4) high Not Available [facility] [address], [place], [address], 02/27/2023 18:04:11 02/27/19 24 02/27/2023 COMPR EHENS FLACO METAB OLIC PANL ALT 14 U/L (0-33) Not Available [facility] [address], [place], [address], 02/27/2023 18:04:11 02/27/19 24 02/27/2023 COMPR EHENS FLACO METAB OLIC PANL estimated GFR creatinine 49 mL/mi n/1.7 3_M2 Creat inine based estim ated glome rular filtr ation (eGFR ) in adult s is calcu lated using the Natio nal Kidne y Found ation recom tiki d 2020 CKD-E PI equat ion. Estim ates GFR from serum creat inine , age and sex. Not Available [facility] [address] [place], [address], 02/27/2023 18:04:11 02/27/19 24 02/27/2023 HEMOG LOBIN A1C hemoglobin A1C 5.5 % (4.0-5 .6) MONIT ORING : In known diabe tic patie nts, hemog lobin A1c targe ts shoul d be discu ssed with healt h care provi daniele. DIAGN OSTIC USE: The Ameri can Diabe terry Assoc iatio n (ADA) and the World Healt h Organ izati on (WHO) recom mend the use of HbA1c to diagn ose diabe terry using a thres hold of 6.5%. Patie nts who have an HbA1c betwe en 5.7% and 6.4% are consi dered at incre ased risk for devel oping diabe terry in the futur e. CAUTI ON: False ly low HbA1c resul ts may be obser jimy in patie nts with hemol ytic anemi a, homoz ygous forms of abnor mal hemog lobin (e.g. SS, CC, SC), pregn bella, recen t blood loss or hemog lobin F great er than 7%. Fruct osami ne may be used as an alter samantha test in these cases . REFER ENCE: ADA: Stand ards of Medic al Care in Diabe terry 2019, The Journ al of Clini kristin and Appli ed Resea rc and Educa tion Volum e 43, Suppl ement 1 Not Available [facility] [address], [place], [address], 02/27/2023 19:49:05 08/28/19 24 08/29/2023 BMP7+ EGFR glucose 94 mg/dL 70-99 Not Available [facility] ([facility]) [address] [place], [address], 08/29/2023 16:06:23 08/28/19 24 08/29/2023 BMP7+ EGFR BUN 27 mg/dL 6-24 above high normal Not Available [facility] ([facility]) [address] [place], [address], 08/29/2023 16:06:23 08/28/19 24 08/29/2023 BMP7+ EGFR creatinine 2.34 mg/dL 0.57-1 .00 above high normal Not Available [facility] ([facility]) [address] [place], [address], 08/29/2023 16:06:23 08/28/19 24 08/29/2023 BMP7+ EGFR eGFR 24 mL/mi n/1.7 3 >59 below low normal Not Available [facility] ([facility]) [address] [place], [address], 08/29/2023 16:06:23 08/28/19 24 08/29/2023 BMP7+ EGFR sodium 142 mmol/ L 134-14 4 Not Available [facility] ([facility]) [address] [place], [address], 08/29/2023 16:06:23 08/28/19 24 08/29/2023 BMP7+ EGFR potassium 4.7 mmol/ L 3.5-5. 2 Not Available [facility] ([facility]) [address] [facility], [place], [address], 08/29/2023 16:06:23 08/28/19 24 08/29/2023 BMP7+ EGFR chloride 104 mmol/ L 96-106 Not Available [facility] ([facility]) [address] [place], [address], 08/29/2023 16:06:23 08/28/19 24 08/29/2023 BMP7+ EGFR carbon dioxide, total 24 mmol/ L 20-29 Not Available [facility] ([facility]) [address] [place], [address], 08/29/2023 16:06:23 08/28/19 24 08/28/2023 CBC WITH DIFFE RENTI AL/PL ATELE T WBC 6.5 x10e3 /uL 3.4-10 .8 Not Available [facility] ([facility]) [address] [facility], [place], [address], 08/29/2023 16:06:24 08/28/19 24 08/28/2023 CBC WITH DIFFE RENTI AL/PL ATELE T RBC 4.63 x10e6 /uL 3.77-5 .28 Not Available [facility] ([facility]) [address] [place], [address], 08/29/2023 16:06:24 08/28/19 24 08/28/2023 CBC WITH DIFFE RENTI AL/PL ATELE T hemoglobin 13.2 g/dL 11.1-1 5.9 Not Available [facility] ([facility]) [address] [place], [address], 08/29/2023 16:06:24 08/28/19 24 08/28/2023 CBC WITH DIFFE RENTI AL/PL ATELE T hematocrit 42.1 % 34.0-4 6.6 Not Available [facility] ([facility]) [address] [place], [address], 08/29/2023 16:06:24 08/28/19 24 08/28/2023 CBC WITH DIFFE RENTI AL/PL ATELE T MCV 91 fL 79-97 Not Available [facility] ([facility]) [address] [facility], [place], [address], 08/29/2023 16:06:24 08/28/19 24 08/28/2023 CBC WITH DIFFE RENTI AL/PL ATELE T MCH 28.5 pg 26.6-3 3.0 Not Available [facility] ([facility]) [address] [facility], [place], [address], 08/29/2023 16:06:24 08/28/19 24 08/28/2023 CBC WITH DIFFE RENTI AL/PL ATELE T MCHC 31.4 g/dL 31.5-3 5.7 below low normal Not Available [facility] ([facility]) [address] [facility], [place], [address], 08/29/2023 16:06:24 08/28/19 24 08/28/2023 CBC WITH DIFFE RENTI AL/PL ATELE T RDW 12.0 % 11.7-1 5.4 Not Available [facility] ([facility]) [address] [facility], [place], [address], 08/29/2023 16:06:24 08/28/19 24 08/28/2023 CBC WITH DIFFE RENTI AL/PL ATELE T platelets 233 x10e3 /uL 150-45 0 Not Available [facility] ([facility]) [address] [place], [address], 08/29/2023 16:06:24 08/28/19 24 08/28/2023 CBC WITH DIFFE RENTI AL/PL ATELE T neutrophils 46 % not estab. Not Available [facility] ([facility]) [address] [place], [address], 08/29/2023 16:06:24 08/28/19 24 08/28/2023 CBC WITH DIFFE RENTI AL/PL ATELE T lymphs 31 % not estab. Not Available [facility] ([facility]) [address] [facility], [place], [address], 08/29/2023 16:06:24 08/28/19 24 08/28/2023 CBC WITH DIFFE RENTI AL/PL ATELE T monocytes 10 % not estab. Not Available [facility] ([facility]) [address] [facility], [place], [address], 08/29/2023 16:06:24 08/28/19 24 08/28/2023 CBC WITH DIFFE RENTI AL/PL ATELE T eos 12 % not estab. Not Available [facility] ([facility]) [address] [facility], [place], [address], 08/29/2023 16:06:24 08/28/19 24 08/28/2023 CBC WITH DIFFE RENTI AL/PL ATELE T basos 1 % not estab. Not Available [facility] ([facility]) [address] [facility], [place], [address], 08/29/2023 16:06:24 08/28/19 24 08/28/2023 CBC WITH DIFFE RENTI AL/PL ATELE T immature cells CORE FITTER Not Available [facility] ([facility]) [address] [facility], [place], [address], 08/29/2023 16:06:24 08/28/19 24 08/28/2023 CBC WITH DIFFE RENTI AL/PL ATELE T neutrophils (absolute) 2.9 x10e3 /uL 1.4-7. 0 Not Available [facility] ([facility]) [address] [place], [address], 08/29/2023 16:06:24 08/28/19 24 08/28/2023 CBC WITH DIFFE RENTI AL/PL ATELE T lymphs (absolute) 2.0 x10e3 /uL 0.7-3. 1 Not Available [facility] ([facility]) [address] [facility], [place], [address], 08/29/2023 16:06:24 08/28/19 24 08/28/2023 CBC WITH DIFFE RENTI AL/PL ATELE T monocytes(ab solute) 0.6 x10e3 /uL 0.1-0. 9 Not Available [facility] ([facility]) [address] [facility], [place], [address], 08/29/2023 16:06:24 08/28/19 24 08/28/2023 CBC WITH DIFFE RENTI AL/PL ATELE T eos (absolute) 0.8 x10e3 /uL 0.0-0. 4 above high normal Not Available [facility] ([facility]) [address] [place], [address], 08/29/2023 16:06:24 08/28/19 24 08/28/2023 CBC WITH DIFFE RENTI AL/PL ATELE T baso (absolute) 0.1 x10e3 /uL 0.0-0. 2 Not Available [facility] ([facility]) [address] [facility], [place], [address], 08/29/2023 16:06:24 08/28/19 24 08/28/2023 CBC WITH DIFFE RENTI AL/PL ATELE T immature granulocytes 0 % not estab. Not Available [facility] ([facility]) [address] [place], [address], 08/29/2023 16:06:24 08/28/19 24 08/28/2023 CBC WITH DIFFE RENTI AL/PL ATELE T immature grans (abs) 0.0 x10e3 /uL 0.0-0. 1 Not Available [facility] ([facility]) [address] [place], [address], 08/29/2023 16:06:24 08/28/19 24 08/28/2023 CBC WITH DIFFE RENTI AL/PL ATELE T NRBC CORE FITTER Not Available [facility] ([facility]) [address] [facility], [place], [address], 08/29/2023 16:06:24 08/28/19 24 08/28/2023 CBC WITH DIFFE RENTI AL/PL ATELE T hematology comments: CORE FITTER Not Available [facility] ([facility]) [address] [facility], [place], [address], 08/29/2023 16:06:24 08/28/19 24 08/29/2023 B-TYP E NATRI URETI C PEPTI DE B-type natriuretic peptide 54.8 pg/mL 0.0-10 0.0 Sieme ns [facility] XP metho dolog y Not Available [facility] ([facility]) [address] [facility], [place], [address], 08/29/2023 16:06:25 01/20/20 23 01/11/2023 CT, abdom en + pelvi s, w/ contr ast No observ ation record ed. [email or web address] Not Available 2022 09:02:07 01/20/20 23 01/11/2023 XR, chest , 2 view No observ ation record ed. [email or web address] Not Available 2022 09:02:06 01/20/20 23 01/11/2023 elect irena diogr am No observ ation record ed. [email or web address] Not Available 2022 09:02:06 01/20/2001/11/2023 US, abdom en, limit ed No observ ation record ed. [email or web address] Not Available 2022 09:02:07 01/20/20 23 01/14/2023 trans -thor acic echoc ardio gram (TTE) (PROC ) No observ ation record ed. [email or web address] Not Available 2022 09:02:44 02/05/20 24 02/02/2024 trans -thor acic echoc ardio gram (TTE) (PROC ) No observ ation record ed. [email or web address] Not Available 2023 14:26:12 Result Notes None recorded. Problems Name Problem SNOMED Code Status Onset Date Resolution Date Notes Provider Name and Address Organization Details Recorded Time Bronchos pasm [id number] Completed 200709/26/2013 IMPRESSI ON: BETTER; RECORDED 12/16/19 08 9:02AM BY DARREL DARLING MA, FRIDAATI ON/ADDBINH linton, [facility] 6 11:05:27 Acute secretor y otitis media [id number] Completed 201109/26/2013 IMPRESSI ON: RIGHT OM, WILL TX WITH AMOX, FOLLOW UP IF NOT BETTER; RECORDED 09/29/19 12 9:03AM BY BARBARA SMALLWOOD, MARGOT ON/RACHEL linton, [facility] 6 11:05:27 Acute pharyngi tis [id number] Completed 201109/26/2013 RECORDED 09/29/19 12 9:03AM BY BARBARA SMALLWOOD, FRIDAATI ON/RACHEL linton, [facility] 6 11:05:27 Acute sinusiti s [id number] Completed 201109/26/2013 RECORDED 09/29/19 12 9:03AM BY BARBARA SMALLWOOD, FRIDAATI ON/RACHEL linton, [facility] 6 11:05:27 Arthropa thy [id number] Completed 201109/26/2013 IMPRESSI ON: FEELS MORE ACHEY THAN USUAL, PT TO WALK AND STRETCH, LIFTS AND ALL AT WORK BUT NO STRETCHI NG; RECORDED 01/26/20 12 9:26AM BY JEOVANY MONTEJO MA, FRIDAATI ON/ADDBINH linton, [facility] 6 11:05:27 Screenin g for malignan t neoplasm of breast Completed 201109/26/2013 RECORDED 01/26/20 12 9:26AM BY JEOVANY MONTEJO MA, ANNOTATI ON/ADDEN DUM Darrel franklin MA null, [facility] 8 11:35:15 Screenin g for malignan t neoplasm of breast Completed 201304/30/2017 Darrel franklin MA null, [facility] 8 11:35:15 Bronchit is [id number] Completed 201109/26/2013 IMPRESSI ON: IN A SMOKER, NO FEVER OR SOB, TREAT BELOW, CALL IF ANY WORSENIN G; RECORDED 09/29/19 12 9:03AM BY BARABRA SMALLWOOD, ANNOTATI ON/ADDEN DUM Abi Desouza MA null, [facility] 6 11:05:27 Abnormal findings on diagnost ic imaging of breast [id number] Completed 201109/26/2013 RECORDED 01/26/20 12 9:26AM BY JEOVANY MONTEJO MA, ANNOTATI ON/ADDEN DUM Abi linton, [facility] 6 11:05:27 Chest pain [id number] Completed 201309/26/2013 IMPRESSI ON: RESOLVED , ER CHIOMACHAR GE SUMMARY REVIEWED , WILL SEE CARDIOLO GY D/T STRONG FH EARLY CARDIAC DISEASE; RECORDED 04/29/19 14 11:28AM BY MARGOT METZGER ON/ADDEN DUM Abi linton, [facility] 6 11:05:27 Closed fracture [id number] Completed 201109/26/2013 RECORDED 01/26/20 12 9:26AM BY JEOVANY MONTEJO MA, ANNOTATI ON/ADDEN DUM Abi linton, [facility] 6 11:05:27 Constipa tion [id number] Completed 201309/26/2013 RECORDED 04/29/19 14 11:28AM BY MARGOT METZGER ON/ADDEN DUM Abi Desouza YOVANI null, [facility] 7 10:12:41 Exposure to organism Completed 200709/26/2013 RECORDED 12/16/19 08 9:02AM BY DARREL DARLING MA, FRIDAATI ON/ADDEN DUM Abi Desouza YOVANI null, [facility] 6 11:05:27 Dysfunct ional uterine bleeding Completed 201109/26/2013 RECORDED 01/26/20 12 9:26AM BY JEOVANY MONTEJO MA, FRIDAATI ON/ADDEN GREGORY Desouza YOVANI null, [facility] 6 11:05:27 Dysuria [id number] Completed 201109/26/2013 IMPRESSI ON: FROM VAGINAL IRRITATI ON, NEG URINEE; RECORDED 01/26/20 12 9:26AM BY JEOVANY MONTEJO MA, FRIDAATI ON/ADDEN GREGORY Desouza MA null, [facility] 6 11:05:27 Influenz a vaccine needed [id number] 06 Completed 201309/26/2013 RESOLVED DATE: 04/29/19 14;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 Available Not Available Not Available ketotifen fumarate 0.025 % soln active Not Available Not Available Not Available naproxen 500 mg tabs active Not Available Not Available Not Available monteluka st sodium 10 mg tabs active Not Available Not Available Not Available doxycycli ne hyclate 100 mg caps active Not Available Not Available Not Available flunisoli de 25 mcg/act (0.025%) soln active Not Available Not Available Not Available reclipsen 0.15-30 mg-mcg tabs active Not Available Not Available Not Available miconazol e 3 200 mg supp active Not Available Not Available Not Available tramadol hcl 50 mg tabs active Not Available Not Available Not Available proair hfa 108 (90 base) mcg/act aers active Not Available Not Available Not Available albuterol sulfate (2.5 mg/3ml) 0.083% nebu 1 vial via nebulize r every 6 hours, as needed active Not Available Not Available No t Available cyclobenz aprine 10 mg tablet Q HS PRN SPASM 07/06 completed Not Available Not Available Not Available amoxicill in 500 mg capsule TAKE 1 CAPSULE BY MOUTH EVERY 8 HOURS FOR 7 DAYS active Not Available Not Available No t Available furosemid e 40 mg tablet TAKE 1 TABLET BY MOUTH EVERY DAY active Not Available Not Available No t Available terconazo le 0.4 % vaginal cream 07/06 completed Not Available Not Available Not Available acetamino phen 325 mg tablet 08/27 completed Not Available Not Available Not Available carvedilo l 6.25 mg tablet TAKE 1 TABLET BY MOUTH TWICE A DAY active Not Available Not Available No t Available prednison e 10 mg tablet Take 4 tablets daily x 3 days, then 3 tablets daily x 3 days, then 2 tablets daily x 3 days, then 1 tablet daily x 3 days 06/17 completed Not Available Not Available Not Available oxybutyni n chloride ER 15 mg tablet,ex tended release 24 hr DAILY active RECORDED 06/04/19 14 1:00PM BY SARA RAMOS MA, OFFICE VISIT; Not Available Not Available Not Available gabapenti n 600 mg tablet Take 1 tablet twice a day by oral route for 30 days. 05/28 completed Not Available Not Available Not Available doxycycli ne hyclate 100 mg capsule Take 1 capsule twice a day by oral route for 7 days. active Not Available Not Available No t Available nicotine 14 mg/24 hr daily transderm al patch APPLY 1 PATCH EVERY DAY BY TRANSDER MAL ROUTE DIRECTED FOR 14 DAYS. active Not Available Not Available No t Available albuterol sulfate 2.5 mg/3 mL (0.083 %) solution for nebulizat ion USE 1 VIAL VIA NEBULIZE R EVERY 6 HOURS NEEDED FOR SHORTNES S OF BREATH OR WHEEZING 2021 active Not Available Not Available Not Avai lable azithromy yanci 250 mg tablet TAKE 2 TABLETS (500 MG) BY ORAL ROUTE ONCE DAILY FOR 1 DAY THEN 1 TABLET (250 MG) BY ORAL ROUTE ONCE DAILY FOR 4 DAYS 01/25 completed Not Available Not Available Not Available ibuprofen 800 mg tablet TAKE 1 TABLET BY MOUTH EVERY 8 HOURS NEEDED FOR PAIN 01/22 completed should not take NSAIDS Not Available Not Available Not Available nicotine (polacril ex) 2 mg gum CHEW 1 PIECE OF GUM EVERY 2 HOURS BY ORAL ROUTE NEEDED FOR 30 DAYS. active Not Available Not Available No t Available fluconazo le 150 mg tablet Take 1 tablet every day by oral route as directed for yeast vaginiti s. May repeat after 72 hours as needed. for 1 day. 2023 active Not Available Not Available Not Avai lable ketotifen 0.025 % (0.035 %) eye drops INSTILL 1 DROP INTO AFFECTED EYE(S) BY OPHTHALM IC ROUTE 3 TIMES PER DAY NEEDED 02/27 completed Not Available Not Available Not Available albuterol sulfate 1.25 mg/3 mL solution for nebulizat ion USE 1 VIAL VIA NEBULIZE R THREE TIMES DAILY NEEDED active Not Available Not Available No t Available hydrocodo ne 5 mg-acetam inophen 325 mg tablet Take 1 tablet every 6 hours by oral route for 5 days. 02/27 completed Not Available Not Available Not Available senna 8.6 mg tablet TAKE 1 TABLET BY MOUTH TWICE DAILY 05/28 completed Not Available Not Available Not Available fluconazo le 200 mg tablet TAKE 1 TABLET BY MOUTH EVERY DAY active Not Available Not Available No t Available meloxicam 15 mg tablet TAKE 1 TABLET BY MOUTH EVERY DAY DIRECTED active Not Available Not Available No t Available prednison e 20 mg tablet Take 3 tablets every day by oral route for 5 days. 02/27 completed Not Available Not Available Not Available isosorbid e mononitra te ER 30 mg tablet,ex tended release 24 hr TAKE 1 TABLET BY MOUTH EVERY DAY active Not Available Not Available No t Available prednison e 5 mg tablet 01/25 completed Not Available Not Available Not Available terconazo le 0.8 % vaginal cream QHS 07/29 completed RECORDED 08/10/19 11 10:58AM BY MAC Silverman MD, MEDICATI ON AUTO-STEVE CTIVATIO N; Not Available Not Available Not Available Miconazol e-3 200 mg vaginal supposito ry active Not Available Not Available Not Available amlodipin e 5 mg tablet TAKE 1 TABLET BY MOUTH EVERY DAY DIRECTED 01/20 completed Not Available Not Available Not Available sulfameth oxazole 800 mg-trimet hoprim 160 mg tablet Take 1 tablet every 12 hours by oral route for 10 days. 02/27 completed Not Available Not Available Not Available omeprazol e 40 mg capsule,d elayed release TAKE 1 CAPSULE BY MOUTH EVERY DAY DIRECTED FOR 90 DAYS active Not Available Not Available No t Available tramadol 50 mg tablet TAKE 2 TABLETS BY MOUTH EVERY 8 HOURS DIRECTED 05/28 completed Not Available Not Available Not Available acetamino phen 500 mg tablet TAKE 2 TABLETS BY MOUTH THREE TIMES DAILY NEEDED FOR PAIN active Not Available Not Available No t Available amoxicill in 500 mg tablet 05/28 completed Not Available Not Available Not Available carvedilo l 3.125 mg tablet Take 2 tablets twice a day by oral route for 14 days. 02/27 completed Not Available Not Available Not Available amoxicill in 875 mg tablet TAKE 1 TABLET BY MOUTH EVERY 12 HOURS DIRECTED FOR 7 DAYS 12/15 completed 08/27/23 currentl y taken Not Available Not Available Not Available DOK 100 mg capsule TAKE 1 CAPSULE BY MOUTH EVERY DAY DIRECTED 05/28 completed Not Available Not Available Not Available benzonata te 100 mg capsule Take 1 capsule 3 times a day by oral route as needed for 15 days. 12/24 completed Not Available Not Available Not Available econazole nitrate 1 % topical cream APPLY EXTERNAL LY TO THE AFFECTED AND SURROUND ING AREAS TWICE DAILY 07/06 completed Not Available Not Available Not Available cephalexi n 500 mg capsule Take 1 capsule every 8 hours by oral route for 10 days. 2014 active Not Available Not Available Not Avai lable erythromy yanci 5 mg/gram (0.5 %) eye ointment APPLY 1CM RIBBON INTO THE LOWER CONJUNCT IVAL SAC IN AFFECTED EYE(S) THREE TIMES DAILY 12/24 completed Not Available Not Available Not Available triamcino lone acetonide 0.1 % topical ointment APPLY THIN LAYER TOPICALL Y TO THE AFFECTED AREA TWICE DAILY NEEDED active Not Available Not Available No t Available lisinopri l 10 mg tablet TAKE 1 TABLET BY MOUTH EVERY DAY 05/28 completed Pt states PRN Not Available Not Available Not Available lidocaine 5 % topical patch 05/28 completed Not Available Not Available Not Available ferrous gluconate 240 mg (27 mg iron) tablet TAKE 1 TABLET BY MOUTH TWICE DAILY 09/10 completed Not Available Not Available Not Available polymyxin B sulfate 10,000 unit-trim ethoprim 1 mg/mL eye drops INSTILL 1 DROP INTO AFFECTED EYE(S) BY OPHTHALM IC ROUTE EVERY 6 HOURS 05/27 completed Not Available Not Available Not Available Vitamin B-6 100 mg tablet Take 1 tablet every day by oral route for 30 days. 01/22 completed Not Available Not Available Not Available Advair Diskus 500 mcg-50 mcg/dose powder for inhalatio n one puff bid active Not Available Not Available No t Available gabapenti n 300 mg capsule TAKE ONE CAPSULE BY MOUTH EVERY DAY 09/10 completed Not Available Not Available Not Available omeprazol e 20 mg capsule,d elayed release TAKE 1 CAPSULE BY MOUTH TWICE DAILY 01/22 completed Not Available Not Available Not Available magnesium citrate oral solution 04/18 completed Not Available Not Available Not Available isomethep tene-dich loralphen -acetamin ophen 65 mg-100 mg-325 mg capsule PRN MIGRAINE 08/14 completed RECORDED 08/15/19 11 11:45AM BY MARGOT VIVEROS/RACHEL JENKINS;THIS ORDER DISCONTI NUED PER MEDI-SPA N. Not Available Not Available Not Available diclofena c sodium 75 mg tablet,de layed release BID/PRN 2012 active RECORDED 12/21/19 13 9:29AM BY MAC Silverman MD, REFILL REQUEST; Not Available Not Available Not Available monteluka st 10 mg tablet TAKE 1 TABLET BY MOUTH EVERY DAY DIRECTED 2024 active Not Available Not Available Not Avai lable lisinopri l 5 mg tablet Take 1 tablet every day by oral route for 30 days. active Not Available Not Available No t Available furosemid e 20 mg tablet TAKE 1 TABLET BY MOUTH EVERY DAY FOR 90 DAYS active Not Available Not Available No t Available ergocalci ferol (vitamin D2) 1,250 mcg (50,000 unit) capsule TAKE 1 CAPSULE BY MOUTH EVERY WEEK DIRECTED 05/28 completed Not Available Not Available Not Available azelastin e 137 mcg (0.1 %) nasal spray 12/24 completed Not Available Not Available Not Available diazepam 10 mg tablet 02/05 completed Not Available Not Available Not Available hydroxych loroquine 200 mg tablet TAKE 1 TABLET BY MOUTH EVERY DAY DIRECTED 2024 active Not Available Not Available Not Avai lable epinephri ne 0.3 mg/0.3 mL injection , auto-inje ctor INJECT 1 PEN INTRAMUS CULARLY NEEDED FOR ANAPHALA XIS DIRECTED active Not Available Not Available No t Available Tylenol-C odeine #3 300 mg-30 mg tablet FOUR TIMES DAILY, NEEDED 03/23 completed RECORDED 06/03/19 12 3:25PM BY MAC Silverman MD, MEDICATI ON AUTO-STEVE CTIVATIO N; Not Available Not Available Not Available lisinopri l 10 mg-hydroc hlorothia zide 12.5 mg tablet QD 07/22 completed RECORDED 07/23/19 11 1:36PM BY ISREAL OATES ANNOTATI ON/RACHEL DUM; Not Available Not Available Not Available ibuprofen 600 mg tablet Q 6HRS PRN PAIN 09/10 completed Not Available Not Available Not Available polyethyl abdi glycol 3350 17 gram/dose oral powder MIX ONE CAPFUL IN 8 OUNCES OF JUICE OR WATER AND DRINK TWICE DAILY NEEDED. HOLD IF DIARRHEA OCCURS 05/28 completed Not Available Not Available Not Available Anusol-HC 25 mg rectal supposito ry Insert 1 supposit ory as needed by rectal route as needed for 14 days. 02/27 completed Not Available Not Available Not Available methylpre dnisolone 4 mg tablets in a dose pack active Not Available Not Available Not Available albuterol sulfate HFA 90 mcg/actua tion aerosol inhaler USE 2 PUFFS BY MOUTH FOUR TIMES DAILY active Not Available Not Available No t Available cefdinir 300 mg capsule active Not Available Not Available Not Available fluticaso ne propionat e 50 mcg/actua tion nasal spray,gilles pension [place] 2 sprays every day by intranas al route as directed for 30 days. active Not Available Not Available No t Available Ambien 5 mg tablet QHS PRN INSOMNIA 02/03 completed RECORDED 02/04/20 12 4:01PM BY ISREAL OATES, ANNOTATI ON/ADDEN DUM; Not Available Not Available Not Available loratadin e 10 mg tablet DAILY 06/02 completed RECORDED 06/03/19 12 3:44PM BY KAIT STOCKTON MD, ANNOTATI ON/ADDEN DUM; Not Available Not Available Not Available naproxen 500 mg tablet TAKE 1 TABLET BY MOUTH TWICE DAILY WITH FOOD NEEDED 07/20 completed Not Available Not Available Not Available amoxicill in 875 mg-potass ium clavulana te 125 mg tablet TWO TIMES DAILY 05/10 completed RECORDED 07/13/19 10 9:31AM BY ANUP WILKINSON MD, MEDICATI ON AUTO-STEVE CTIVATIO N; Not Available Not Available Not Available oxycodone 5 mg tablet 03/12 completed Not Available Not Available Not Available albuterol (refill) 90 mcg/actua tion aerosol inhaler Inhale 2 puffs every 4-6 hours by inhalati on route as needed. 08/01 completed Not Available Not Available Not Available codeine-g uaifenesi n oral syrup Q 4 HOURS PRN 06/15 completed RECORDED 06/17/19 14 8:35AM BY KAIT STOCKTON MD, MEDICATI ON AUTO-STEVE CTIVATIO N; Not Available Not Available Not Available nicotine (polacril ex) 2 mg buccal lozenge DISSOLVE 1 LOSENGE EVERY 8 HOURS NEEDED FOR 30 DAYS active Not Available Not Available No t Available chlorhexi dine gluconate 0.12 % mouthwash USE 15 ML TO RINSE MOUTH FOR 30 SECONDS TWICE DAILY AFTER BRUSHING AND FLOSSING . DO NOT SWALLOW active Not Available Not Available No t Available omeprazol e DAILY 2013 active RECORDED 07/02/19 14 1:33PM BY MAC Silverman MD, REFILL REQUEST; Not Available Not Available Not Available ferrous gluconate 1 daily 08/27 completed does not take per pt Not Available Not Available Not Available Miralax 17 GM PO DAILY OR NEEDED 08/01 completed Not Available Not Available Not Available varenicli ne tartrate 1 mg tablet BID 07/22 completed RECORDED 07/23/19 11 1:32PM BY ISREAL OATES, ANNOTATI ON/RACHEL DUM; Not Available Not Available Not Available Chantix Starting Month [place] 0.5 mg (11)-1 mg (42) tablets in dose pack BID 03/25 completed RECORDED 04/26/19 08 8:45AM BY MAC Silverman MD, MEDICATI ON AUTO-STEVE CTIVATIO N; Not Available Not Available Not Available hydrochlo rothiazid e 12.5 mg tablet TAKE 1 TABLET BY MOUTH EVERY DAY 03/12 completed Not Available Not Available Not Available Symbicort 160 mcg-4.5 mcg/actua tion HFA aerosol inhaler 02/27 completed Not Available Not Available Not Available All Day Allergy (cetirizi ne) 10 mg tablet TAKE 1 TABLET BY MOUTH DAILY active Not Available Not Available No t Available omeprazol e 20 mg tablet,de layed release Take 1 tablet twice a day by oral route for 30 days. 2014 active Not Available Not Available Not Avai lable cholecalc iferol (vitamin D3) 50 mcg (2,000 unit) capsule TAKE 1 CAPSULE BY MOUTH EVERY DAY DIRECTED FOR 90 DAYS active Not Available Not Available No t Available Flovent Diskus 100 mcg/actua tion powder for inhalatio n TWO TIMES DAILY 2013 active RECORDED 06/08/19 14 2:43PM BY KAIT STOCKTON MD, PRESCRIP TION REFILL; Not Available Not Available Not Available Nargis (hong hernandez) 50 % topical pads Apply 1 pad every 6 hours by topical route as directed for 14 days. 05/28 completed Not Available Not Available Not Available Dulera 200 mcg-5 mcg/actua tion HFA aerosol inhaler Inhale 1 puff twice a day by inhalati on route as directed for 30 days. 05/28 completed Not Available Not Available Not Available Vitamin D2 take 5,000 qd 03/12 completed Not Available Not Available Not Available lidocaine 5 % topical ointment APPLY TO AFFECTED AREA(S) BY TOPICAL ROUTE 1-4 TIMES DAILY NEEDED 01/22 completed Not Available Not Available Not Available Myrbetriq 25 mg tablet,ex tended release TAKE 1 TABLET BY MOUTH EVERY DAY DIRECTED 01/22 completed Not Available Not Available Not Available Virtussin AC 10 mg-100 mg/5 mL oral liquid 10 ml AT BEDTIME and bid prn for 7 days 01/25 completed Not Available Not Available Not Available Farxiga 10 mg tablet TAKE 1 TABLET BY MOUTH EVERY DAY active Not Available Not Available No t Available Spiriva Respimat 2.5 mcg/actua tion solution for inhalatio n Inhale 2 puffs every day by inhalati on route as directed for 30 days. 01/22 completed Not Available Not Available Not Available Liletta 20.4 mcg/24 hr (up to 8 years) 52 mg intrauter ine device Take by intraute rine route. 01/22 completed Not Available Not Available Not Available Entresto 24 mg-26 mg tablet Take 1 tablet twice a day by oral route as directed for 90 days. active Not Available Not Available No t Available Spiriva Respimat 1.25 mcg/actua tion solution for inhalatio n INHALE 2 PUFFS BY MOUTH ONCE DAILY DIRECTED active Not Available Not Available No t Available nicotine (polacril ex) 4 mg buccal mini lozenge 08/27 completed Not Available Not Available Not Available BinaxNOW COVID-19 Ag Self Test kit TEST DIRECTED TODAY 02/27 completed Not Available Not Available Not Available Vitals Date Recorded Body height Body mass index (BMI) Body weight Heart rate Oxygen saturation Oxygen saturation in Arterial blood by Pulse oximetry Body temperature Systolic blood pressure Diastolic blood pressure Provider Name and Address Organization Details Last Updated DateTime 3 175.26 cm 25.4 kg/m2 78261.8 9 g 90 /min 99 % 99 % 98.7 [degF] 104 mm[Hg] 66 mm[Hg] [facility] 3 14:15:39 Date Recorded Body height Body mass index (BMI) Body weight Heart rate Oxygen saturation Oxygen saturation in Arterial blood by Pulse oximetry Body temperature Systolic blood pressure Diastolic blood pressure Provider Name and Address Organization Details Last Updated DateTime 4 175.26 cm 25.4 kg/m2 40133.2 9 g 82 /min 99 % 99 % 98.1 [degF] 138 mm[Hg] 86 mm[Hg] [facility] 4 11:10:42 Date Recorded Body height Body mass index (BMI) Body weight Heart rate Oxygen saturation Oxygen saturation in Arterial blood by Pulse oximetry Body temperature Systolic blood pressure Diastolic blood pressure Provider Name and Address Organization Details Last Updated DateTime 4 175.26 cm 26.2 kg/m2 15533.2 5 g 77 /min 99 % 99 % 97.6 [degF] 125 mm[Hg] 76 mm[Hg] [facility] 10:21:29 Date Recorded Body height Body mass index (BMI) Body weight Heart rate Oxygen saturation Oxygen saturation in Arterial blood by Pulse oximetry Body temperature Systolic blood pressure Diastolic blood pressure Provider Name and Address Organization Details Last Updated DateTime 4 175.26 cm 27.5 kg/m2 55114.1 8 g 82 /min 98 % 98 % 98.2 [degF] 142 mm[Hg] 90 mm[Hg] Tricia Keller [facility] 11:15:32 Date Recorded Systolic blood pressure Diastolic blood pressure Provider Name and Address Organization Details Last Updated DateTime 12/16/2023 132 mm[Hg] 88 mm[Hg] BARBARA JACOBO [address], [place], [address], [facility] 12/16/2023 11:25:51 Social History Question Answer Notes LastModified by Organizat ion Details LastModified Time Tobacco Smoking Status Current Every Day Smoker Ariane Betancourt MA null, [facility] 09/23/2013 10:02:33 Do You Have An Advance Directive? No Information not available 05/28/2021 What Is Your Level Of Alcohol Consumption? Moderate Information not available 02/27/2023 Is Blood Transfusion Acceptable In An Emergency? Yes [email or web address] Information not available 02/01/2015 What Is Your Level Of Caffeine Consumption? Occasional Information not available 02/27/2023 How Much Tobacco Do You Chew? None Information not available 05/09/2015 Are You Currently Employed? No Information not available 05/09/2015 What Type Of Diet Are You Following? REGULAR [email or web address] Information not available 02/01/2015 Which Illicit Or Recreational Drugs Have You Used? None Information not available 05/09/2015 What Is Your Occupation? N/a Information not available 05/09/2015 Live Alone Or With Others? With Others Female Partner Information not available 05/28/2021 Do You Take Precautions To Prevent Distracted Driving? Yes [email or web address] Information not available 02/01/2015 How Often Do You Need To Have Someone Help You When You Read Instructions, Pamphlets, Or Other Written Material From Your Doctor Or Pharmacy? Sometimes [email or web address] Information not available 02/01/2015 Have You Served In The ? Yes [employer] Information not available 04/30/2017 What Was The Date Of Your Most Recent Tobacco Screening? 02/27/2023 [email or web address] Information not available 02/27/2023 How Many Children Do You Have? 0 Information not available 05/09/2015 Do You Use Protection During Sex? No Information not available 05/09/2015 Seat Belts Used Routinely Yes Information not available 05/28/2021 Are You Sexually Active? Yes [email or web address] Information not available 02/01/2015 Smoke Alarm In Home Yes Information not available 05/28/2021 At What Age Did You Start Smoking Tobacco? 30 Information not available 05/09/2015 Are You Passively Exposed To Smoke? Yes Information not available 05/09/2015 How Much Tobacco Do You Smoke? 1 PPD [email or web address] Information not available 02/01/2015 Do You Use Any Illicit Or Recreational Drugs? No Information not available 02/27/2023 Do You Use Sunscreen Routinely? No Information not available 02/27/2023 How Many Years Have You Smoked Tobacco? 10 [email or web address] Information not available 02/01/2015 Sex: Unknown Functional Status Question Answer Note LastModified by Organization D etails LastModified Time Are you able to walk? YESWOREST [email or web address] Information not available 04/24/2022 Are you able to care for yourself? Yes [email or web address] Information not available 02/01/2015 What is your exercise level? None [email or web address] Information not available 02/01/2015 Mental Status None recorded. Family History Relationship Description Onset Age of this Age Resolved Age Notes LastModified by Organization Details LastModified Time Mother Cerebrovascu lar accident [email or web address] Not available 12/2015 10:28:57 Mother Diabetes mellitus [email or web address] Not available 2015 10:28:58 Mother Hypertensive disorder [email or web address] Not available 2015 10:28:58 Father Hypertensive disorder [email or web address] Not available 2015 10:28:58 Notes:No colon or breast can cer Medical History Condition Response Coronary Artery Disease N Gout N Other N Blood Diseases N Kidney Stones N Hyperthyroidism N Breast Cancer N mrsa exposure N Lung Disease N COPD N Depression N Hypothyroidism N Defects or Inherited Disease N Developmental or Behavioral Disorders N Breast Problem N Anesthesia Complications N Headaches/Migraines N Varicose Veins N Anxiety Disorder N Muscle, Joint, or Bone Problems N Obesity N Vision or Eye Problems Y Arthritis N Head Injury/Concussion N Infertility N Polyps N Mental Disorder N Congenital Anomalies N Acid Reflux (GERD) N Cancer N Stroke N ADHD N Endometriosis N High Cholesterol N Liver Disease N Headaches N Fibromyalgia N Kidney Disease N Heart Problems N Ear or Hearing Problems N Hospitalizations N Thyroid Problems N GI Problems Y Developmental Delay N Acne N Eating Disorder N Skin Problems N Anemia N Constipation Y Bladder Problems N Mental Illness N Diabetes N Ovarian Cancer N Bedwetting N Blood Transfusions N Heart Problems/Murmur N Seizures/Epilepsy N Tuberculosis N AIDS/HIV N Congestive Heart Failure (CHF) N Eczema N Abuse/Domestic Violence N Diverticulitis N Asthma N Allergies N Reflux/GERD N Hepatitis N Heart Disease N Pulmonary Embolism N Hypertension N Chicken Pox N Autism Spectrum Disorder (ASD) N Osteoporosis N Gynecological History Statement/Question Response Menses Monthly N Date of Last Pap Smear 09/23/2022 Most Recent Mammogram 04/26/2019 LMP Unknown Obstetrics History GPAL:G 0 P 0 0 0 0 Immunizations Vaccine Type Date Status Note Provider Nam e and Address Organization Details Recorded Time Influenza, split virus, quadrivalent, PF 5 completed Not Available [facility] 03/05/2019 02:22:01 COVID-19, mRNA, LNP-S, PF, 30 mcg/0.3 mL dose 1 completed YOVANI Cortés, [facility] 05/28/2021 13:41:07 COVID-19, mRNA, LNP-S, PF, 30 mcg/0.3 mL dose 1 completed YOVANI Cortés, [facility] 05/28/2021 13:41:07 Influenza, MDCK, quadrivalent, PF 2 completed Nani Zamora CPPM null, [facility] 04/25/2022 13:53:42 COVID-19, mRNA, LNP-S, bivalent, PF, 30 mcg/0.3 mL dose 2 completed Nani Zamora CPPM null, [facility] 04/25/2022 13:53:42 COVID-19, mRNA, LNP-S, PF, 50 mcg/0.5 mL 4 completed YOVANI Hassan, [facility] 08/28/2023 10:14:27 Influenza, split virus, quadrivalent, PF 4 completed YOVANI Hassan [facility] 08/28/2023 10:14:27 Influenza, split virus, quadrivalent, PF 6 completed Not Available [facility] 03/05/2019 02:22:08 Influenza, split virus, quadrivalent, PF 7 completed Not Available [facility] 03/05/2019 02:22:11 Influenza, split virus, quadrivalent, PF 8 completed Not Available [facility] 03/05/2019 02:22:22 Influenza, split virus, trivalent, preservative 7 completed Not Available [facility] 08/30/2013 13:48:49 Tdap 1 completed Not Available [facility] 08/30/2013 13:48:49 Influenza, split virus, trivalent, preservative 1 completed Not Available [facility] 08/30/2013 13:48:49 influenza, seasonal, intradermal, preservative free 2 completed Not Available [facility] 08/30/2013 13:48:49 pneumococcal polysaccharide PPV23 2 completed Not Available [facility] 08/30/2013 13:48:49 influenza, seasonal, intradermal, preservative free 3 completed Not Available [facility] 08/30/2013 13:48:49 Influenza, split virus, trivalent, PF 4 completed Not Available [facility] 03/05/2019 02:21:57 Past Encounters Encounter ID Performer Location Encounter Start Date Encounter Closed Date Diagnosis/Indication Diagnosis SNOMED-CT Code Diagnosis ICD10 Code Diagnosis Note [id number] [facility] [address] [facility] [place] [address] 12/22/2006 00:00:00 [id number] [facility] [facility] [address] [facility] [place] [address] 01/14/2007 00:00:00 [id number] [facility] [facility] [address] [facility] [place] [address] 02/22/2007 00:00:00 [id number] [address] [place] [address] 02/25/2007 00:00:00 [id number] [address] [address] [place] [address] 03/02/2007 00:00:00 [id number] [address] [address] [place] [address] 04/26/2007 00:00:00 [id number] [address] [address] [place] [address] 09/02/2007 00:00:00 [id number] auto[facility]Comm erce [address] [facility] [address] [place] [address] 12/16/2007 00:00:00 [id number] auto[facility]Comm erce [address] [facility],[address] [place] [address] 03/20/2008 00:00:00 [id number] auto[facility] erce [address] [facility] [place] [address] 04/23/2009 00:00:00 [id number] auto[facility]Comm erce [address] [facility] [place] [address] 04/30/2009 00:00:00 [id number] auto[facility] erce [address] [facility] [place] [address] 07/24/2010 00:00:00 [id number] auto[facility]Comm erce [address] [facility] [place] [address] 10/24/2010 00:00:00 [id number] auto[facility]Comm erce [address] [facility] [place] [address] 11/28/2010 00:00:00 [id number] auto[facility]Comm erce [address] [facility] [place] [address] 03/14/2011 00:00:00 [id number] auto[facility] erce [address] [facility] [place] [address] 09/29/2011 00:00:00 [id number] auto[facility] erce [address] [facility] [place], [place] [address] 01/26/2012 00:00:00 [id number] auto[facility] erce [address] [facility] [address] [place], [place] [address] 03/25/2012 00:00:00 [id number] auto[facility]Comm erce [address] [facility] [place], [place] [address] 07/27/2012 00:00:00 [id number] auto[facility]Comm erce [address] [facility] [place], [place] [address] 10/20/2012 00:00:00 [id number] auto[facility] erce [address] [facility] [place], [place] [address] 04/28/2013 00:00:00 [id number] auto[facility]Comm erce [address] [facility] [place], [place] [address] 06/03/2013 00:00:00 [id number] auto[facility]Comm erce [address] [facility] [place], [place] [address] 07/14/2013 00:00:00 [id number] Main Office [address] [facility] [address] [address] [place] [address] 09/30/2013 08:42:51 09/30/2013 11:28:34 [facility] [id number] Angie Quinn MA Main Office [address] [facility] [address] [place] [address] 10/21/2013 10:17:35 10/21/2013 11:06:27 Adult health examination [id number] pt is overdue on her mammogram, she will go if we set it up, pap is utd, needs to exercise. Fatigue 83743258 check l abs look for DM since strong fmaily hx and pt is gaining weight Hypercholesterolemia 59676842 [id number] Ariane Betancourt MA Main Office [address] [facility] [address] [place] [address] 11/17/2013 10:03:38 11/17/2013 10:09:51 Tuberculosis screening 663310021 [id number] Mac guerra Main Office [address] [address] [place] [address] 11/19/2013 09:26:12 11/19/2013 09:32:16 [id number] Angie Quinn MA Main Office [address] [address] [place] [address] 12/14/2013 10:03:05 12/14/2013 11:00:59 Asthma 330967170 exacerbati on Cough 62168196 producti ve cough for 2 weeks, will cover for possible bacterial infx Needs infl uenza immunization 901924463 [id number] Abi Desouza MA Main Office [address] [address] [place] [address] 12/29/2013 10:09:44 12/29/2013 11:34:32 Asthma 788900315 wheezing resolved, continue advair Cough 89689196 resolved [id number] Angie Quinn MA Main Office [address] [address] [place] [address] 01/10/2014 10:19:04 01/10/2014 11:09:57 Bursitis of shoulder 687858324 Ulnar neuropathy 402407488 will have eval by Dr. 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 [place] [address] 12/14/2014 11:10:41 12/14/2014 11:24:20 Needs influenza immunization 624458532 Z23 [id number] Mac guerra Main Office [address] [facility] [place] [address] 12/22/2014 08:34:10 12/22/2014 09:24:32 Disorder of vagina 36144373 N89.9 loks like an abrasion will test for HSV though unlikely [id number] Anup ruffin Main Office [address] [address] [place] [address] 01/18/2015 13:43:31 01/18/2015 14:40:21 Menorrhagia 388936217 N92.0 pt continues to have heavy bleeding/c lots vaginally/ In ED she had mild anemia and headaches due to her bleeding Iron defic iency anemia 02632057 D50.9 [id number] Mac guerra Main Office [address] [address] [place] [address] 02/01/2015 10:57:57 02/01/2015 12:06:12 Adult health examination 578457499 Z00.00 pt is overdue on her mammogram, she will go if we set it up, pap is utd, needs to exercise. Menorrhagia 124640824 N9 2.0 pt with 3 weeks of heavy bleeding, ER did labs and she is anemic, taking one iron pill bid, pt was also started on OCPs in ER but hse smokes a pack a day, due to DVT risk I had pt stop OCPS today! She will, any leg pain or swelling she knows is important to have evaluated. Tobacco de pendence syndrome 55909153 F17.290 strongly advised pt to stop smoking Knee pain 90447769 M25.5 61 OA dn deconditio chad, [id number] Mac BarrAlicia charlie Main Office [address] [facility] [address] [place] [address] 02/22/2015 13:13:19 02/22/2015 14:16:21 Constipation 57705598 K59.00 Suspect patient is having diarrhea due to senns. Recommend she stop senna and swicth to colace once daily, may increase to twice daily f she feels BMs are hard. If constipati on worsens may use miralax. Will also refer to GI for further eval of her symptoms of constipati on/normal BMs/ diarrhea. ? of IBS though she states she has had chronic constipati on for years which she has been treating with senna. I suspect she is taking too much senna. Diarrhea 60461019 R19.7 STOP senna, start colace daily instead Disorder of eyelid 36397 004 H02.9 Had allrgy shots and developed a left eye infection, still has a tiny area of induration to upper lid? stye. She will use warm compresses and if still present st f/u she will discuss further then. [id number] Nani Zamora [facility] Main Office [address] [facility] [place] [address] 04/13/2015 10:01:41 04/13/2015 10:39:34 Elevated blood-pressure reading without diagnosis of hypertension 803568961 R03.0 in past was on meds for htn, off for years, check labs, EKG, unlikely any ischemic issues, talked about lifestyle changes like stoping smoking,ex ercise and weight loss checka t home, return one month, low salt Tight chest 18718564 R07 .89 see above, sounds noncardiac , get baseline EKG External hordeolum 42161 08 H00.014 left upper eyelid with residual stye, willt x as below and if not resolving pt will make appt with Dr Dominguez Tobacco de pendence syndrome 95796262 F17.290 strongly advised pt to stop smoking [id number] Mac guerra Main Office [address] [facility] [place] [address] 05/09/2015 15:10:25 05/09/2015 15:46:21 Gastroesophageal reflux disease 605709923 K21.9 controlled continue meds Knee pain 34526544 M25.5 61 OA and deconditio chad, I strongly advised tpt o start exercise, weight training, is sedentary adn overweight Proteinuria 93439278 R80 .9 urine with one plus albumin and cr of 1.2 and BP is up, saw renal and they are doing a workup Hypertensive disorder 38 036414 I10 on meds,d ecent control Menorrhagia 959923061 N9 2.0 strongly encouraged pt to get endometria l biopsy Tobacco de pendence syndrome 83577902 F17.290 strongly advised pt to stop smoking [id number] Mac Miguelina charlie Main Office [address] [facility] [place] [address] 06/27/2015 12:51:48 06/27/2015 13:43:41 Peripheral neuropathic pain 190430823 M79.2 Start Gabapentin at 300 mg at HS . POssible side effects reviewed. Will recheck in 2-3 weeks for need to adjust the dose and overall tolerance. Excessive thirst 1509799 7 R63.1 Will test fasting glucose in the lab. A1c is in IGT range. Family h/o Diabetes and personal h/o obesity. Discussed high risk for developing Type II DM. PT. is advised to start physical activity by walking 30 minutes most days of the week and lowering total calories and concentrat ed sweats. Body mass index 30+ - obesity 109547293 Z68.31 [id number] Mac Miguelina guerra Main Office [address] [facility] [address] [place] [address] 07/26/2015 13:34:06 07/26/2015 14:09:15 Internal hemorrhoids 82042705 K64.8 Use suppositor y BID x 14 days, warm epsom sitz baths, use tucks pads as needed as well as medicated wipes, high fiber diet, stay well hydrated, use your stool softeners daily. Suspect hemorrhoid may be thrombosed but patient wishes to hold off on referral and tx symptomati tobias, she will call next week if no improvment . Dermatophytosis 23835438 B35.9 2.5cm round patch with erythemato us, border, mild central clearing, + itching, econazole BID as directed x 14 days. [id number] Mac Miguelina charlie Main Office [address] [facility] [address] [place] [address] 08/02/2015 10:36:51 08/02/2015 11:05:07 Internal hemorrhoids 51658199 K64.8 1 cm thrombosed internal hemorrhoid extending outside, + increase in size since visit last week. Continue to use suppositor y BID x 7 days, warm epsom sitz baths, use tucks pads as needed as well as medicated wipes, high fiber diet, stay well hydrated, use your stool softeners daily. Will refer to colorectal surgery for further eval and possible excision. [id number] Mac Miguelina guerra Main Office [address] [facility] [address] [place] [address] 08/27/2015 10:17:50 08/27/2015 11:23:42 Hidradenitis 31163189 L73.2 [id number] Kait Hernandez MD Main Office [address] [facility] [address] [place] [address] 01/14/2016 10:06:48 01/14/2016 10:54:00 Needs influenza immunization 952058954 Z23 Hand pain 20388586 M79.6 41 Unlikely to be a foreign body but will get an xray to r/o a metal foreign body and refer her to a hand surgeon for further evaluation because of the length of time. [id number] Mac Miguelina guerra Main Office [address] [place] [address] [address] [place] [address] 02/28/2016 11:15:51 02/28/2016 12:10:31 Palpitations 31334033 R00.2 may be due to thyroid abn or anemia, will check labs Dysfunctio nal uterine bleeding 32533957 N93.8 has resisted full workup by music instructor, I hoang get US done, and refer to music instructor, she will go, Iron defic iency anemia 62626800 D50.9 off irone, anemic in the apt, recheck, having some fast heartrate, stable in office today Cough 87081995 R05 pnd treat as below [id number] Mac Miguelina guerra Main Office [address] [place] [address] [address] [place] [address] 04/18/2016 11:24:32 04/18/2016 12:17:31 Dysmenorrhea 101942911 N94.6 see hx, pt promises to followup through, heavy bleeding, vaginal irritation , perimenopa usal and has uterine fibroids. Uterine leiomyoma 778850 05 D25.9 seen on past US Acute vaginitis 73877377 N76.0 tx as below Gastroesop hageal reflux disease 137652696 K21.9 controlled continue meds Hypertensive disorder 38 280422 I10 stable on meds, continue [id number] Valery Maciel Main Office [address] [address] [place] [address] 06/17/2016 08:32:41 06/17/2016 09:24:05 Internal hemorrhoids 25794603 K64.8 Near syncope 168841184 R 55 hydrated via IV, continue to stay well hydrated. Check home BP if not feeling well. Dehydration 69204504 E86 .0 Stay well hydrated External hordeolum 50445 08 H00.014 left eye, upper lid at tear duct, will tx with polytrim drops, if not better next week please call for a referral. Urinary incontinence 165 443559 R32 [id number] Mac guerra Main Office [address] [address] [place] [address] 10/13/2016 15:58:25 10/13/2016 16:39:15 Pain in left knee 3246622408 82202 M25.562 pt to see ortho, most likely arthritis Pain in lower limb 13108 006 M79.604 refer to PT Unintentio nal weight loss 597675052 R63.4 check labs [id number] Mac Miguelina guerra Main Office [address] [address] [place] [address] 12/24/2016 15:35:02 12/24/2016 16:47:07 Needs influenza immunization 333260315 Z23 Hematochezia 467084964 K 62.5 red blood with stool yesterday and a few days prior guiac negative today check CBC, has internal hemorrhoid s and a hx of hemorrhoid s, if anemic or continues pt to see GI Acute vaginitis 57866394 N76.0 looks like yeast vaginitis tx as below Dysfunctio nal uterine bleeding 31863041 N93.8 Acute laryngitis 9684314 J04.0 2 days, had same time last year, most likely viral, pt asking for prednisone or codeine but no need, tx allergies with flonase Seasonal a llergic rhinitis 382637127 J30.2 continue zyrtec adn add flonase [id number] Mac guerra Main Office [address] [address] [place] [address] 02/05/2017 10:04:08 02/05/2017 10:52:45 Adult health examination 078685605 Z00.00 pt is overdue on her mammogram, she will arrange. We will get her appt for pap Dysuria 46355140 R30.0 ? vaginal irritation , will send out and treat if positive Screening for malignant neoplasm of breast 022606707 Z12.39 pt to make appt Paresthesi a of lower extremity 370339814 R20.2 right leg, pt to see dr Cantor back and review MRI he ordered Dysmenorrhea 587109652 N 94.6 pt to see music instructor, heavy menses and vaginal irriation [id number] Mac guerra Main Office [address] [address] [place] [address] 04/30/2017 11:31:42 04/30/2017 12:03:35 Hordeolum externum of upper eyelid 616672261 H00.019 none today, but gets them frequently , requests referral. She is having surgery thursday and is nervous this may happen again- Asthma 534486010 J45.90 9 needs med refills. [id number] Anup ruffin Main Office [address] [address] [place] [address] 05/19/2017 10:48:19 05/19/2017 11:46:23 Edema of lower extremity 304724494 R60.0 Serum crea tinine above reference range 391351812 R79.89 [id number] Kait Hernandez MD Main Office [address] [address] [place] [address] 05/27/2017 08:55:25 05/27/2017 09:39:55 Essential hypertension 50487079 I10 mildly elevated bp c some LE edema - trial c adding low dose hctz, Cr stable from last week Edema of l ower extremity 448057862 R60.0 Multiple joint pain 3567 8005 M25.50 h/o gout and fh lupus - will check labs for further eval and set up c rheum consult 25 minute office visit with greater than 50% of the visit face-to-fa ce with the patient and/or family providing counseling and/or coordinati on of care. [id number] Mac Miguelina guerra Main Office [address] [facility] [address] [place] [address] 07/06/2017 10:39:16 07/06/2017 11:35:14 Constipation 42623622 K59.00 chronic, uses stool softener and miralax occaionaly Allergic reaction 871480 005 T78.2XXD refill Unintentio nal weight loss 322311505 R63.4 labs all nl except 40 sed rate, pt will see GI needs screening URI, ? role for EGD as well? Hypertensive disorder 38 837755 I10 stable on meds, continue Swelling of eyelid 60057 7004 R22.0 pt to set up appt with Dr Dominguez [id number] Mac Miguelina oconnellenzo Main Office [address] [address] [place] [address] 09/10/2017 14:04:38 09/10/2017 15:37:17 Constipation 54351642 K59.09 Dizziness 790154910 R42 not orthostati c, negative head tilt test. EKG done 2017 normal. no cardiac sx. hydration, check labs. Fatigue 65376217 R53.83 Foot pain 47683636 M79.6 71 M79.672 [id number] Mac ThompsonJerson charlie Main Office [address] [address] [place] [address] 11/06/2017 10:56:18 11/06/2017 11:39:04 Body mass index 30+ - obesity 630874770 Z68.39 Seasonal a llergic rhinitis 801802403 J30.2 continue zyrtec adn add flonase Needs infl uenza immunization 629493901 Z23 Asthma 089642612 J45.90 9 well controlled , barely needs meds since cutting down smoking Gastroesop hageal reflux disease 957168488 K21.9 controlled continue meds Obstructiv e sleep apnea syndrome 36463768 G47.33 had a sleep study years ago, will set up appt for sleep medicine services for reeval, is waking up with headache and has fatigue and snores. Tobacco de pendence syndrome 43355054 F17.290 strongly advised pt to stop smoking Hypertensive disorder 38 038934 I10 stable on meds, continue Chronic ankle pain 79312 59638 9109 M25.571 G89.29 NEOS is following needs scooter [id number] Mac guerra Main Office [address] [place] [address] 01/25/2018 14:50:54 01/25/2018 15:31:52 Acute pharyngitis 257372296 J02.9 gargles with warm salt water. Ok to use tylenol prn, Rest, hydration. Likely viral but due to exposure to strep culture sent, will call with results. Call if worseing or febrile [id number] COLETTE Solorio Main Office [address] [place] [address] 05/28/2021 13:31:41 05/28/2021 14:14:28 Essential hypertension 20676752 I10 BP eleavted today, she has been taking her SO's amlodipine here and there but not consistent . Discussed risk of uncontroll ed HTN - heart attack stroke. her diet is not good, eatign fried/ fatty foods. Does think she can fast for 12 hours as she feels she is always hungry. Asthma 383039793 J45.90 9 needs med refills. Allergic rhinitis 802030 04 J30.9 Overactive urinary bladder 390121216 N32.81 Rheumatoid arthritis 698 40028 M06.9 Vitamin D deficiency 347 57414 E55.9 Screening for malignant neoplasm of cervix 949343830 Z12.4 needs to have her IUD out, states it is overdue to come out but she is unsure how long it has been in. Hyperlipidemia 21956024 E78.5 Fatigue 72775501 R53.83 Impaired f asting glycemia 696250157 R73.01 diet is not very good, will check labs [id number] Chelsi Alcantar PA-C Main Office 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 Pt. needs to be tested by [facility] and have biopsy as this is recurrent situation. I the mean time I will give her Rx for lidocaine as this si very painful and sh will see TUBE CUTTER in 2 days as scheduled. [id number] Gilma Naif Main Office [address] [place] [address] 03/12/2022 13:05:27 03/12/2022 13:59:16 Pain of left knee joint [id number] 91324 M25.562 Ongoing pain with recent flare, to see ortho, ? needs fluid drained, ? new MRI. Labs done Serum crea tinine above reference range 890168092 R79.89 repeat today, if elevated cannot use nsaids Effusion o f joint of left knee 4015462301 84337 M25.462 refer back to rheumatolo gy , labs today for joint effusion and pain, warmth and swelling. To ED if worsening, will try nsaids if creatinine ok Rheumatoid arthritis 698 47484 M06.9 rheumatolo gy [id number] Valery Maciel Main Office [address] [place] [address] 04/24/2022 09:34:59 04/24/2022 10:24:10 Allergic reaction 089562223 T78.2XXD refill Essential hypertension 12151086 I10 BP is elevated since pt not taking med, will refill but has at home and I urged her to restart, she said she would 2 month f/i Pain of knee region 1003 860195 M25.562 pt to do strengthen ing exercises to help, [id number] Nani Zamora CPP Main Office [address] [address] [place] [address] 01/19/2023 13:26:22 02/19/2023 13:34:42 [id number] Severiano Castellanos MD Main Office [address] [address] [place] [address] 01/22/2023 14:01:32 01/22/2023 14:59:46 Essential hypertension 21046178 I10 MEDS DISCONTINU EDHCTZAmlo dipine-in office BP stable, 104/66-fol low up with cardiology Dr. 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 Main Office [address] [facility] [address] [place] [address] 02/27/2023 11:01:18 02/27/2023 12:06:36 Adult health examination 347268659 Z00.00 HM- due for mammo and colo, pap UTD Vitamin D deficiency 347 90735 E55.9 Essential hypertension 02801480 I10 Has not take her BP meds yet today Hyperlipidemia 66925419 E78.5 cholestero l checked in Hospital- normal Obstructiv e sleep apnea syndrome 81642456 G47.33 needs sleep med eval- referral has been placed Rheumatoid arthritis 698 24047 M06.9 on hydroxychl oroquine Congestive heart failure 69666943 I50.9 on lasix, trying to elevate her legs, has compressio n stockings, last creatinine 1.3, will recheck. Prediabetes 107541468 R7 3.03 Screening for malignant neoplasm of breast 209829733 Z12.39 due for mammo Screening for malignant neoplasm of colon 890524172 Z12.11 due for colonoscop y Edema of l ower extremity 639567749 R60.0 taking lasix daily as directed Mild inter mittent asthma 358904057 J45.20 using inhalers and montelukas t Headache 51845015 R51.9 Has been having headaches, suspect related to new cardiac meds. [id number] COLETTE Solorio Main Office [address] [place] [address] 08/28/2023 10:09:50 08/28/2023 10:50:46 Essential hypertension 69551867 I10 BP well controlled today, she states she is takign her medication s as directed. Rheumatoid arthritis 698 15664 M06.9 on hydroxychl oroquine,a lot of joint pain needs assistance getting to BR at night, needs assistance getting in the shower, sometimes needs help getting dressed, needs help grocery shopping, getting laundry downstairs , cooking, cleaning. She states 13.25 hours is not enough and she needs more hours. Recommend re-eval for more hours as it is medically necessary for her to have assistance when needed. Multiple joint pain 3567 8005 M25.50 Asthma 790954405 J45.90 9 needs med refills. Congestive heart failure 80270729 I50.9 on lasix, trying to elevate her legs, has compressio n stockings, last creatinine 1.3, will recheck.perkins s not had f/u with cardiology , she will call to schedule. Edema of l ower extremity 600126802 R60.0 taking lasix daily as directed Hyperlipidemia 38371223 E78.5 cholestero l checked in Hospital- normal Impaired f asting glycemia 569159972 R73.01 Mild inter mittent asthma 256931448 J45.20 using inhalers and montelukas t Peripheral neuropathic pain 158268274 M79.2 Gastroesop hageal reflux disease 966620441 K21.9 [id number] BARBARA JACOBO Main Office [address] [place] [address] 12/16/2023 11:11:15 12/16/2023 11:28:38 Essential hypertension 16145109 I10 in office BP of 142/90 then 132/88-fol low up wit/h cardiology Dr. Flanagan-c/w current regimen Congestive heart failure 49437180 I50.9 on lasix, trying to elevate her legs, has compressio n stockings- follows with cardiology [id number] Nina Patel MD Main Office [address] [facility] [place] [address] 01/02/2024 20:18:10 01/04/2024 14:07:34 Acute vaginitis 60454418 N76.0 -Will tx for presumptiv e candidal vaginitis with 1 dose of fluconazol e.-If there is no improvemen t, she will have to come in for an exam. Health Concerns Section Related Observation LastModified by Organization Detai ls LastModified Time None Recorded Concern Status LastModified by Organization Details LastModified Time None Recorded Advance Directives Directive N: Payers Encounter Date Sequence Insurance Name Policy Number Policy Michel Covered Member ID Michel Member ID Guarantor Name 01/22/2023 1 [facility] - DOS ON OR AFTER 2022 - ONE CARE (MEDICARE REPLACEMENT/ADV ANTAGE - HMO) Juana R Click [id number] Juana R Click 02/27/2023 1 [facility] - DOS ON OR AFTER 2022 - ONE CARE (MEDICARE REPLACEMENT/ADV ANTAGE - HMO) Juana R Click [id number] Juana R Click 02/27/2023 2 MEDICAID-[place]: [facility] Juana R Click [id number] Juana R Click 08/28/2023 1 [facility] - DOS ON OR AFTER 2022 - ONE CARE (MEDICARE REPLACEMENT/ADV ANTAGE - HMO) Juana R Click [id number] Juana R Click 12/16/2023 1 [facility] - DOS ON OR AFTER 2022 - ONE CARE (MEDICARE REPLACEMENT/ADV ANTAGE - HMO) Juana R Click [id number] Juana R Click 01/02/2024 1 [facility] - DOS ON OR AFTER 2022 - ONE CARE (MEDICARE REPLACEMENT/ADV ANTAGE - HMO) Juana R Click [id number] Juana R Click Notes Date Note Type Note Provider Name and Address Organization Details Recorded Time 01/23/20 23 text/htm l Hospitalization Contact RecordFor follow up, patient reports hospital: [facility], admit date: (01/11/2023), date of discharge: (01/15/2023), and date of contact: (01/19/2023).Medicare covered inpatient stay? noTOC with in 48 working hours? no HCP on file? noMOLST on file? noDischarge Summary available? yes pt presented to the ED with abdominal pain/discomfort and nausea, and was consequently admitted due to new onset CHF. EKG showed sinus rhythm with HR of 94, QTc 455, nonspecific ST/T changes.Ct scan of abdomen showed pelvic ascites, diffuse gallbladder wall edema. CXR showed mild pulmonary edema. With these findings, pt was diuresed with Lasix 20 mg IV BID and had remarkable improvement. Ecg was performed which revealed EF of 40-50%. The left ventricular wall thickness is mildly increased. The LV systolic function is mildly reduced. There is mild global hypokinesis of the left ventricle. Cath was performed which revealed mildly elevated left sided filling pressures, low cardiac output, mild-moderate mixed pre-capillary and post-capillary pulmonary HTN, normal coronary arteries. PCP HEADS UP/FOLLOW UPpt was admitted due to new onset of CHFEcho revealed HFmrEF 40-45 with severe mitral regurgitationcoronary cath revealed normal coronary artery and mild-moderate pixed pre-capillary and post-capillary pulmonary HTNCONSIDER SLEEP STUDY OUTPT since she has sx of sleep apneafollow up with cardiology Dr. Flanagan in 2 weeksfollow up with GI for an EGD outpt. PULMONARY HTNwill continue cardiology recommendations and started Entresto this admission. continue furosemide 40 mg, increase carvedilol to 6.25 BID, Entresto 24-26 mg BID, continue Isosorbide Mononitrate 30 mg. GERDcontinue PPItrend liver enzymes outpt, noted trending down, plan for EGD and colonoscopy outpt MEDS DISCONTINUEDHCTZAmlodipine Kyle presents to the office with her wound care nurse Doreen. Has no questions or concerns. Reports to be doing well since discharge. Denies of any SOB, chest pain, or symptoms of illness. BP has been stable since stopping the HCTZ and amlodipine. Is set to see the category planner next week. Severiano Castellanos MD [address] [address], [place], [address], [facility] 01/25/2023 22:50:47 02/27/19 24 text/htm l Medicare Annual Wellness VisitReported bypatient.Diet and Nutrition:healthy diet; discussed vitamin and supplement use Fracture Risk:no history of fractures; no recent explained fracture; no sudden unexplained fractures; no previous musculoskeletal injuries Physical Activity:good physical condition;does not exercise on a regular basis;decreased physical activity Depression Risk:no loss of interest in activities; no significant changes in weight; no sleep disturbances or insomnia; no agitation; no loss of energy; no feelings of worthlessness or guilt; no thoughts of suicide; no history of depression;feels sad, empty, or tearful;history of mood disorders; feels bored Orientation:no disorientation to time; no disorientation to date; no disorientation to place Concentration and Memory:no decreased concentrating ability; no memory lapses or loss; does not forget words Speech/Motor difficulties:no speech difficulties; no difficulty expressing formulated concepts; no difficulty with fine manipulative tasks; no difficulty writing/copying; no slowed reaction time; does not knock things over when trying to pick them up Hearing:no loss of hearing Vision:no vision problems; wears glasses- due for visit Activities of Daily Living:able to bathe with limited or no assistance; able to contol urination and bowels; able to dress with limited or no assistance; able to feed self with limited or no assistance; able to get out of chair or bed with limited or no assistance; able to groom with limited or no assistance; able to toilet with limited or no assistance Instrumental Activities of Daily Living:able to do house work with limited or no assistance; able to grocery shop with limited or no assistance; able to manage medications with limited or no assistance; able to manage money with limited or no assistance; able to prepare meals with limited or no assistance; able to use the phone with limited or no assistance Falls Risk Assessment:no frequent falls while walking; no fall in the past year; no fall since last visit; no dizziness/vertigo Home Safety:reviewed sun protection; no unsafe felecia hazzards; no unsafe stairs; no unsafe gas appliances; working smoke/CO detectors; wears protective head gear for biking/high velocity; practicing 'safer sex'; no vision or hearing loss while driving; no fire arms; has hand bars in the bathroom/shower; good lighting in the homeNotes:S/P recent admission due to CHF, EF 40-50%Cardiology visit 03/13/23Smoking 12 cigs/ day, has not started patches/ gum/ lozengesweighs herself daily, taking lasix 20mg daily, added farxiga at cards visit and was switched to entresto.Saw OT, after admission x 1, oliver showed does not qualify for recliner, but she feels she needs it for edema and for SOB as well as for her pain/ decreased mobility at times. COLETTE Solorio [address] [facility] [address], [place], [address], [facility] 02/27/2023 12:53:20 08/28/19 24 text/htm l Generic HPI TemplateReported bypatient.Notes:Presents for 6 month F/U BP is good, taking all med as directed. 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 most days can get dressed but on bad days needs help getting in shower and dressing. COLETTE Solorio [address] [facility] [address], [place], [address], [facility] [place] 08/28/2023 12:29:40 12/16/19 24 text/htm l Malu is a 58yr old F who presents for HTN f/u. Reports she forgot to taker her BP medication yesterday and had a BP reading of 190 systolic. Reports she typically does not check her BP at home routinely. Follows with cardiology. BARBARA JACOBO [address] [facility] [address], [place], [address], [facility] [place] 12/16/2023 12:22:02 01/02/20 24 text/htm l Vaginal DischargeReported bypatient.Location:vagina Quality:white Duration:1 days Associated Symptoms:no pain during intercourse; no vaginal lump; no genital lesion; no sexually transmitted disease; no feverVaginitisReported bypatient.Associated Symptoms:no rash; no lesions The patient participated in a telehealth visit accompanied by her SLUDGE FILTRATION OPERATOR, with her consent to discuss her health concerns. She reports completing a two-week course of Amoxicillin prescribed by her dentist, with the last dose taken yesterday. Following the antibiotic treatment, she developed vaginal discharge described as cottage cheese-like and accompanied by an unpleasant odor. She denies associated symptoms such as itching, burning, or pain. No systemic symptoms, including fever or chills, are reported. During the visit, the patient appeared impatient and expressed urgency, making the discussion challenging despite being asked to remain calm. She is seeking treatment for her symptoms. Nina Patel MD [address], [address], [facility] 01/02/2024 20:30:40 OBGyn Episode No OBEpisode recorded.
--- OUTSIDE RECORDS SUMMARY | 2024-03-09 18:11 | XMS_ITS | Encounter Summary ---
Author Organization [facility] Address [address] [address] Phone Care Team Providers Care Social Sciences Department Chair Name Role Phone Lianne Reilly PA-C Primary Care Provider + [phone] Reason for Referral * Cardiac Services (Routine) - Pending Review Specialty Diagnoses / Procedures Referred By Contac t Referred To Contact Diagnoses Stage 3 chronic kidney disease, not otherwise specified (HCC) Procedures Ultrasound renal limited Shay El MD [address] [address] Phone: tel: fax: Referral ID Status Reason Start Date Expiration Date V isits Requested Visits Authorized [id number] Pending Review 03/03/2024 03/03/2025 1 1 Reason for Visit * Reason Comments Chronic Kidney Disease Encounter Details Date Type Department Care Team (Late st Contact Info) Description 03/03/2024 10:00 AM EST Office Visit [facility] [address] [address] Shay El MD [address] [address] Stage 3 chronic kidney disease, not otherwise specified (HCC) (Primary Dx); Hypertension; Heart failure with reduced ejection fraction (HCC) Social History Tobacco Use Types Packs/Day Years [...] on file Sexual Orientation Not on file documented as of this encounter Last Filed Vital Signs Vital Sign Reading [...] Mass Index 27.32 03/03/2024 10:17 AM EST documented in this encounter Progress Notes * Shay El MD - 03/03/2024 10:00 AM EST [facility] Patient Name: Juana Calvillo, Female Date of : 1965, 58 y.o. Date: 03/03/2024 Referring MD: No primary care provider on file. PCP: Lianne Reilly PA-C Thank you for allowing me to participate in the care of your patient Reason For Visit: I had the pleasure of seeing your patient for evaluation of abnormal serum creatinine. There is a history of hypertension for at least 10 years. She has a heart failure with reduced heart function. She lost 20 lbs after being recently started on diuretics. She has rheumatoid arthritis. There is no recent upper respiratory infection or skin rash. There is no change in the color or appearance of the urine. She took Meloxicam daily for years and stopped couple month ago. There is a family history of kidney disease (brother is on dialysis). The following portions of the patient's chart were reviewed in this encounter and updated as appropriate: Allergies Meds Problems Med Hx Surg Hx Fam Hx Constitutional: Negative for chills, fever, malaise/fatigue and weight loss. HENT: Negative for ear pain, hearing loss and tinnitus. Eyes: Negative for blurred vision, double vision, photophobia and pain. Respiratory: Negative for cough, hemoptysis, sputum production, shortness of breath and wheezing. Cardiovascular: Negative for chest pain, palpitations, orthopnea, claudication and leg swelling. Gastrointestinal: Negative for abdominal pain, diarrhea, nausea and vomiting. Genitourinary: Negative for dysuria, flank pain, frequency, hematuria and urgency. Musculoskeletal: Negative for myalgias. Skin: Negative for itching and rash. Neurological: Negative for dizziness, tingling and headaches. Psychiatric/Behavioral: Negative for depression. Full 13 point review of systems unremarkable except as noted above. Past Medical History: Diagnosis Date Anemia w/ iron deficiency Asthma Gastroesophageal reflux disease Hyperlipidemia Hypertension Elevated BP w/o dx of HTN Sleep apnea Past Surgical History: Procedure Laterality Date OTHER SURGICAL HISTORY cyst removed, lumpectomy Social History Tobacco Use Smoking status: Every Day Current packs/day: 1.00 Types: Cigarettes Smokeless tobacco: Not on file Substance Use Topics Alcohol use: Yes Comment: Alcoholic Drinks/day: Occasional social drink Family History Problem Relation Age of Onset Stroke Mother Kidney disease Sibling brother - dialysis Diabetes Mother type 2 Heart disease Sibling sister, brother Heart disease Father and grandparents Hypertension Sibling sister Heart disease Mother Hypertension Father Hypertension Mother Current Outpatient Medications Medication Sig Dispense Refill Acetaminophen Extra Strength 500 MG tablet TAKE 2 TABLETS BY MOUTH THREE TIMES DAILY NEEDED FOR PAIN albuterol HFA (PROVENTIL HFA;VENTOLIN HFA) 108 (90 Base) MCG/ACT inhaler USE 2 PUFFS BY MOUTH FOUR TIMES DAILY carvedilol (COREG) 6.25 MG tablet Take 1 tablet by mouth in the morning and 1 tablet in the evening. cefdinir (OMNICEF) 300 MG capsule chlorhexidine (PERIDEX) 0.12 % solution USE 15 ML TO RINSE MOUTH FOR 30 SECONDS TWICE DAILY AFTER BRUSHING AND FLOSSING. DO NOT SWALLOW EPINEPHrine (EPIPEN) 0.3 MG/0.3ML injection syringe INJECT 1 PEN INTRAMUSCULARLY NEEDED FOR ANAPHALAXIS DIRECTED Farxiga 10 MG tablet Take 1 tablet by mouth 1 (one) time each day fluconazole (DIFLUCAN) 200 MG tablet Take 1 tablet by mouth 1 (one) time each day furosemide (LASIX) 40 MG tablet Take 1 tablet by mouth 1 (one) time each day hydroxychloroquine (PLAQUENIL) 200 MG tablet Take 200 mg by mouth isosorbide mononitrate (IMDUR) 30 MG 24 hr tablet Take 1 tablet by mouth 1 (one) time each day miconazole (MICOTIN) 200 MG vaginal suppository montelukast (SINGULAIR) 10 MG tablet Take 1 tablet by mouth 1 (one) time each day nicotine (NICODERM CQ) 14 MG/24HR APPLY 1 PATCH EVERY DAY BY TRANSDERMAL ROUTE DIRECTED FOR 14 DAYS. nicotine polacrilex (COMMIT) 4 MG lozenge DISSOLVE 1 LOZENGE BY MOUTH EVERY TWO HOURS NEEDED FORNICOTINE REPLACEMENT omeprazole (PriLOSEC) [address] capsule TAKE 1 CAPSULE BY MOUTH EVERY DAY DIRECTED FOR 90 DAYS sacubitril-valsartan (Entresto) 24-26 MG per tablet Take 1 tablet by mouth in the morning and 1 tablet in the evening. No current facility-administered medications for this visit. Allergies Allergen Reactions Cat Hair Extract Other (see comments) Mixed Ragweed Other Reaction(s): Not available Psyllium Other Reaction(s): Not available Objective: Vitals: 03/03/24 1017 BP: 152/84 Pulse: 80 Weight: 185 lb (83.9 kg) Height: 5' 9 (1.753 m) Physical Exam Constitutional: Oriented to person, place, and time. HEENT: Mouth/Throat: Oropharynx is clear and moist. Eyes: Pupils are equal, round, and reactive to light. Neck: No JVD present. Cardiovascular: Regular rhythm. Pulmonary/Chest: Breath sounds normal. Abdominal: Soft. There is no abdominal tenderness. Musculoskeletal: Normal range of motion. Neurological: Alert and oriented to person, place, and time. Skin: Skin is warm. Psychiatric: Normal mood and affect. No results found for: EGFRAFR eGFR Non-Afr [place] Islander Date Value Ref Range Status 08/28/2023 24 Final Chemistry Lab Units 12/16/23 0000 08/28/23 0000 02/27/23 0000 01/15/23 0000 CREATININE mg/dL 1.65 2.34* 1.30* 1.30* BUN mg/dL 27 27* 15 22* BUN / CREAT RATIO 16 -- -- -- EGFRNAFR -- 24 49 50 GLUCOSE mg/dL 106 -- 88 106 POTASSIUM mEq/L 4.9 4.7 4.4 4.8 SODIUM mEq/L 141 142 141 136* CO2 mmol/L 17 24 -- -- CHLORIDE 105 104.0 105.0 106.0 ALBUMIN g/dL -- -- 4.1 -- HEMOGLOBIN A1C -- -- 5.5 -- BILIRUBIN TOTAL MG/DL -- -- 0.9 -- AST U/L -- -- 23 -- ALT U/L -- -- 14 -- Bone Mineral Lab Units 12/16/23 0000 02/27/23 0000 01/15/23 0000 CALCIUM mg/dL 10.1 10.4 9.8 ALK PHOS U/L -- 125 -- MAGNESIUM -- 2.1 2.2 CBC Lab Units 08/28/23 0000 02/27/23 0000 01/15/23 0000 WBC AUTO 10*3/ML 6.5 5.3 6.8 MCV 91.0 87.6 -- HEMATOCRIT 42.1 43.6 42.1 HEMOGLOBIN 13.2 13.2 13.0 PLATELETS AUTO 10*3/UL 233 254 303 No lab exists for component: SPECGRAV , GLUCOSEUR , BILIRUBINUR , RBCUR , UPROTEIN , LEUKOCYTESUR , NITRITE PLAN: Assessment & Plan 1. Stage 3 chronic kidney disease, not otherwise specified (HCC) 2. Hypertension 3. Heart failure with reduced ejection fraction (HCC) I suspect she has chronic kidney disease based on eGFR and the presence of proteinuria. Differential diagnosis includes: -hypertensive kidney disease -cardiorenal syndrome -analgesic nephropathy (years of using NSAID) -residual kidney function loss due to prior TAMMY I will assess urine sediment and quantify proteinuria I will rule out obstructive uropathy and paraproteinemia Blood pressure is above target today. She is on ARB-NI LVEF 40-50% She is on SGTL2i She is furosemide 40 mg daily. PLAN ARB-NI SGTL2i Follow kidney function and electrolytes UPCR iPTH and vitamin d SPEP Low sodium diet Avoid NSAID Orders Placed This Encounter Renal funtion panel urine albumin / creatinine ratio Vit D 25 hydroxy PTH, intact Urinalysis with microscopic exam OUTSIDE OFFICE Protein electrophoresis, serum Ultrasound renal limited Return in 1 month (on 04/03/2024). Shay El MD documented in this encounter Plan of Treatment Upcoming Encounters Date Type Department Care Team (Late st Contact Info) Description 04/01/2024 10:00 AM EST Office Visit [facility] [address] [address] Shay El MD [address] [address] Scheduled Orders Name Type Priority Associated Diagnoses Order Schedule Ultrasound renal limited Vascular Ultrasound Routine Stage 3 chronic kidney disease, not otherwise specified (HCC) Expected: 03/03/2024, Expires: 03/03/2026 documented as of this encounter Procedures Procedure Name Priority Date/Time Associated Diagnosis Comments MICROSCOPIC EXAMINATION - DO NOT USE Routine 03/03/2024 11:05 AM EST URINE ALBUMIN / CREATININE RATIO Routine 03/03/2024 11:05 AM EST Stage 3 chronic kidney disease, not otherwise specified (HCC) VITAMIN D 25 HYDROXY Routine 03/03/2024 11:05 AM EST Stage 3 chronic kidney disease, not otherwise specified (HCC) URINALYSIS WITH MICROSCOPIC Routine 03/03/2024 11:05 AM EST Stage 3 chronic kidney disease, not otherwise specified (HCC) PROTEIN ELECTROPHORESIS, SERUM Routine 03/03/2024 11:05 AM EST Stage 3 chronic kidney disease, not otherwise specified (HCC) PTH, INTACT Routine 03/03/2024 11:05 AM EST Stage 3 chronic kidney disease, not otherwise specified (HCC) RENAL FUNCTION PANEL Routine 03/03/2024 11:05 AM EST Stage 3 chronic kidney disease, not otherwise specified (HCC) RENAL FUNCTION PANEL (EXTERNAL LAB ENTRY) Routine 12/16/2023 documented in this encounter Results * Microscopic Examination (03/03/2024 11:05 AM EST) WBC, Urine None seen 0 - 5 /hpf [facility] RBC, Urine None seen 0 - 2 /hpf [facility] Squamous Epithelial, Urine None seen 0 - 10 /hpf [facility] Casts None seen None seen /lpf [facility] Bacteria, Urine None seen None seen/Few [facility] 03/03/2024 11:0 5 AM EST 03/03/2024 Shay El MD LAB MICROBIOLOGY - GENERAL ORDER GABY Final Result [facility] [address] [place] [address] * (ABNORMAL) Protein electrophoresis, serum (03/03/2024 11:05 AM EST) Total Protein 7.3 6.0 - 8.5 g/dL [facility] [phone] Albumin 3.2 2.9 - 4.4 g/dL [facility] [phone] Ndude-7-Lplsbuov 0.4 0.0 - 0.4 g/dL [facility] Oxbct-5-Dmlnjqkw 1.0 0.4 - 1.0 g/dL [facility] Beta Globulin 1.2 0.7 - 1.3 g/dL [facility] [phone] Gamma Globulin in Serum 1.5 0.4 - 1.8 g/dL [facility] [phone] M-Zaheer Serum Not Observed Not Observed g/dL [facility] [phone] Globulin, Total 4.1(H) 2.2 - 3.9 g/dL [facility] A/G Ratio 0.8 0.7 - 1.7 [facility] [phone] Please note Comment [facility] Comment: Protein electrophoresis scan will follow via computer, mail, or resort desk clerk delivery. PDF . [facility] Blood (Blood, Venous) 03/03/2024 11:05 AM EST 03/03/2024 us Shay El MD LAB BLOOD ORDERABLES Final Resul t [facility] [address] [place] [address] * (ABNORMAL) Urinalysis with microscopic exam OUTSIDE OFFICE (03/03/2024 11:05 AM EST) Specific [place], Urine 1.010 1.005 - 1.030 [facility] [phone] pH Urine 6.0 5.0 - 7.5 [facility] Color, Urine Yellow Yellow [facility] Appearance Urine Clear Clear [facility] WBC Esterase Urine Negative Negative [facility] Protein, Ur Negative Negative/Tra ce [facility] Glucose, Ur 2+(A) Negative [facility] Ketones, Urine Negative Negative [facility] Blood Urine Negative Negative [facility] Bilirubin Urine Negative Negative [facility] Urobilinogen Urine 0.2 0.2 - 1.0 mg/dL [facility] Nitrite, Urine Negative Negative [facility] Microscopic Examination Comment [facility] Comment:Microscopic follows if indicated. Other Microsc. Observations See below: [facility] [phone] Comment:Microscopic was leonides cated and was performed. Urine (Urine, Clean Catch) 03/03/2024 11:05 AM EST 03/03/2024 us Shay El MD LAB URINE ORDERABLES Final Resul t Performing Organization Address City/[facility] [address]/ZIP Co de Phone Number [employer] [facility] [address] [place] [address] * (ABNORMAL) PTH, intact (03/03/2024 11:05 AM EST) PTH 81(H) 15 - 65 pg/mL [facility] Blood (Blood, Venous) 03/03/2024 11:05 AM EST 03/03/2024 Shay El MD LAB BLOOD ORDERABLES Final Resul t Performing Organization Address [facility] [address]/[facility] de Phone Number [employer] [facility] [place] [address] [place] [address] * Vit D 25 hydroxy (03/03/2024 11:05 AM EST) Vitamin D, 25-OH, Total 37.0 30.0 - 100.0 ng/mL [facility] Comment: Vitamin D deficiency has been defined by the [place] of Medicine and an Endocrine Society practice guideline as a level of serum 25-OH vitamin D less than 20 ng/mL (1,2). The Endocrine Society went on to further define vitamin D insufficiency as a level between 21 and 29 ng/mL (2). 1. IOM ([place] of Medicine). 2010. Dietary reference ?? intakes for calcium and D. [place]: The ?? National Academies Press. 2. Ankit MF, Lorena NC, Alphonso CUNNINGHAM, et al. ?? Evaluation, treatment, and prevention of vitamin D ?? deficiency: an Endocrine Society clinical practice ?? guideline. JCEM. 2010; 96(7):1911-30. Blood (Blood, Venous) 03/03/2024 11:05 AM EST 03/03/2024 us Shay El MD LAB BLOOD ORDERABLES Final Resul t Performing Organization Address City/[facility] [address]/ZIP Co de Phone Number [employer] [facility] [place] [address] [place] [address] * urine albumin / creatinine ratio (03/03/2024 11:05 AM EST) Creatinine, Ur 17.6 Not Estab. mg/dL [facility] Albumin, Urine <3.0 Not Estab. ug/mL [facility] Albumin/Creatin ine Ratio <17 0 - 29 mg/g creat [facility] Comment: ? Normal: ?0 - ??29 ? Moderately increased: 30 - 300 ? Severely increased: ? >300 Urine (Urine, Clean Catch) 03/03/2024 11:05 AM EST 03/03/2024 Shay El MD LAB URINE ORDERABLES Final Resul t [facility] [facility] [place] [address] [place] [address] * (ABNORMAL) Renal funtion panel (03/03/2024 11:05 AM EST) Glucose 101(H) 70 - 99 mg/dL [facility] BUN 19 6 - 24 mg/dL [facility] Creatinine 1.52(H) 0.57 - 1.00 mg/dL [facility] eGFR CKD-EPI CR 2020 40(L) >59 mL/min/1.7 3 [facility] BUN/Creatinine Ratio 13 9 - 23 [facility] Sodium 141 134 - 144 mmol/L [facility] Potassium 4.7 3.5 - 5.2 mmol/L [facility] Chloride 104 96 - 106 mmol/L [facility] Bicarbonate (CO2) 24 20 - 29 mmol/L [facility] Calcium 10.7(H) 8.7 - 10.2 mg/dL [facility] Albumin 4.1 3.8 - 4.9 g/dL [facility] Phosphorus 3.3 3.0 - 4.3 mg/dL [facility] Blood (Blood, Venous) 03/03/2024 11:05 AM EST 03/03/2024 Shay El MD LAB BLOOD ORDERABLES Final Resul t [facility] [address] [place] [address] * Renal Function Panel (External Lab) (12/16/2023) Glucose 106 mg/dL BUN 27 mg/dL eGFR 36 BUN/Creatinine Ratio 16 Sodium 141 mEq/L Potassium 4.9 mEq/L Chloride 105 Carbon Dioxide 17 mmol/L Calcium 10.1 mg/dL Creatinine 1.65 mg/dL Blood 12/16/2023 Gerri Provider LAB BLOOD ORDERABLES Kimberley l Result documented in this encounter Visit Diagnoses Diagnosis Stage 3 chronic kidney disease, not otherwise specified (HCC)- Primary Hypertension Heart failure with reduced ejection fraction (HCC) documented in this encounter Care Teams Social Sciences Department Chair Relationship Specialty Start Date End Date Lianne Reilly PA-C [address] [place] [id number] PCP - General Physician Finish Production Manager 09/02/23 documented as of this encounter
[2024-03-10 19:43] LABS: Lyme Abs Screen <0.90 index
[2024-03-11 15:28] LABS: IgA 150 mg/dL (47-310); IgG 1861 mg/dL (600-1640); IgM 33 mg/dL (50-300)
== END 2024-03-09 16:04 | disposition home or self-care (01) ==
LOC: HO.LAB 16:03
PROVIDERS: PCP Registered Nurse; Visit Provider Psychiatry & Neurology Neurology
DX: G62.9 Polyneuropathy, unspecified (principal)
CPT/HCPCS: 36415; 82607; 82784; 86334; 86617; 86618